=== PATIENT | female | born 1955 | race African-American/Black ===

== ENCOUNTER 2020-07-02 08:42 | Outpatient (CLI) | payer MEDICARE, SELFPAY ==
--- NOTE | ~2020-07-02 | MM_ITS ---
EXAMINATION: MM screening [facility] BI w pierre HISTORY: Screening mammogram TECHNIQUE: Craniocaudal and mediolateral oblique 3-D tomosynthesis images were obtained and synthetic 2-D images were generated. CAD analysis was submitted and interpreted. COMPARISON: 04/28/2018, 05/04/2012, 09/18/2009 BREAST PARENCHYMAL COMPOSITION: There are scattered areas of fibroglandular density. FINDINGS: There is no evidence of suspicious mass, calcification, or architectural distortion to sugg est malignancy in either breast. There has been no suspicious interval change. IMPRESSION: 1. No mammographic evidence of malignancy. 2. Recommend routine screening mammography in one year. BI-RADS Category 1: Negative Reviewed, dictated and finalized at location A.
== END 2020-07-02 08:43 | disposition home or self-care (01) ==
LOC: ANHIMG 08:44
PROVIDERS: PCP Physician Assistant; Visit Provider Obstetrics & Gynecology
DX: Z12.31 Encounter for screening mammogram for malignant neoplasm of breast (principal)
CPT/HCPCS: 77063; 77067

== ENCOUNTER 2020-09-13 08:26 | Outpatient (CLI) | payer MEDICARE, SELFPAY ==
--- NOTE | ~2020-09-13 | XR_ITS ---
EXAMINATION: XR UGIAC wo kub DATE: 09/13/2020 09:13 INDICATION: Epigastric pain. Prior laparoscopic banding procedure with subsequent removal 8 years crystal or. TECHNIQUE: The patient drank thick barium, gas-producing crystals, and thin barium. A total of 634 fl uoroscopic images of the esophagus, stomach, and proximal small bowel were obtained. Fluoroscopy expo sure time was 1.5 minutes. COMPARISON: None. FINDINGS: There is a small sliding-type hiatal hernia with a portion of the gastric fundus projecting posterior and cephalad to the gastroesophageal junction. This likely results in artifactual polypoid appearing filling defect along the left posterior margin of the esophagus on the solid column images in the pr one procedure. There is mild esophageal dysmotility in the distal esophagus characterized by weakness of the primary peristaltic wave with small amount of pooling of contrast the midesophagus. There is a small retropulsion diverticulum in the midesophagus. The esophagus is otherwise normal with no oth er evident masses or strictures. There was no gastroesophageal reflux with provocative maneuvers. The stomach and proximal small bowel are normal. IMPRESSION: 1. Small sliding-type hiatal hernia which extends posterior to the distal esophagus and likely accoun ts for the appearance of a smooth polypoid filling defect at the gastroesophageal junction. Would how ever recommend further evaluation with endoscopy for confirmation and to exclude malignancy. 2. Mild esophageal dysmotility in the distal esophagus with small avulsion diverticulum in the mideso phagus. Reviewed, dictated and finalized at location A. IMPRESSION: 1. Small sliding-type hiatal hernia which extends posterior to the distal esoph gosia and likely accounts for the appearance of a smooth polypoid filling defect at the gastroesophageal junction. Would however recommend further evaluation w ith endoscopy for confirmation and to exclude malignancy. 2. Mild esophageal dysmotility in the distal esophagus with small avulsion dive rticulum in the midesophagus.
== END 2020-09-13 08:27 | disposition home or self-care (01) ==
PROVIDERS: PCP Physician Assistant; Visit Provider Physician Assistant
DX: R10.13 Epigastric pain (principal); K44.9 Diaphragmatic hernia without obstruction or gangrene
CPT/HCPCS: 74246

== ENCOUNTER 2021-07-24 14:22 | Outpatient (CLI) | payer MEDICARE, SELFPAY ==
--- NOTE | ~2021-07-24 | MM_ITS ---
EXAMINATION: MM screening [facility] BI w pierre HISTORY: Screening mammogram TECHNIQUE: Craniocaudal and mediolateral oblique 3-D tomosynthesis images were obtained and synthetic 2-D images were generated. CAD analysis was submitted and interpreted. COMPARISON: 07/02/2020, 04/28/2018, 05/04/2012 bilateral screening mammogram examinations BREAST PARENCHYMAL COMPOSITION: The breasts are almost entirely fatty. FINDINGS: There is an approximately 3 x 7.3 mm irregular high density suspicious mass in the outer mi d right breast near junction of anterior and mid depth. Diagnostic right mammogram and right breast ultrasound are recommended. No other evidence of suspicious mass, calcification, or architectural distortion to suggest malignan cy in either breast. There has been no other suspicious interval change. IMPRESSION: 1. Suspicious irregular high density mass in outer mid right breast 2. Diagnostic right mammogram and right breast ultrasound are recommended. BI-RADS Category 0: Incomplete: Needs additional imaging evaluation. Reviewed, dictated and finalized at location A.
== END 2021-07-24 14:23 | disposition home or self-care (01) ==
PROVIDERS: PCP Physician Assistant; Visit Provider Obstetrics & Gynecology
DX: Z12.31 Encounter for screening mammogram for malignant neoplasm of breast (principal); R92.8 Other abnormal and inconclusive findings on diagnostic imaging of breast
CPT/HCPCS: 77063; 77067

== ENCOUNTER 2021-08-02 13:14 | Outpatient (CLI) | payer MEDICARE, SELFPAY ==
--- NOTE | ~2021-08-02 | MMUS_ITS ---
EXAMINATION: MM diagnostic [facility] RT w pierre, US breast RT limited HISTORY: Right breast mass on screening mammogram TECHNIQUE: Additional 3-D tomosynthesis images of the right breast were performed and synthetic 2-D i mages were generated. CAD analysis was submitted and interpreted. High resolution limited right breas t ultrasound was performed. COMPARISON: 07/24/2021, 07/02/2020, 04/28/2018, 05/04/2012 FINDINGS: MAMMOGRAPHIC FINDINGS: There is an 8 mm x 5 mm oval, circumscribed, the middle third of the outer breast at the 9:00 locatio n 6 cm from the nipple. No associated architectural distortion or suspicious calcification are identi fied. ULTRASOUND: There is a 7 mm x 3 mm oval, circumscribed, parallel, hypoechoic mass with no posterior features or i nternal vascularity at the 10:00 location 8 cm from the nipple. IMPRESSION: 1. Probably benign right breast mass. 2. Recommend 6 month follow-up right diagnostic mammogram and ultrasound. BI-RADS category 3, probably benign findings. Reviewed, dictated and finalized at location A. IMPRESSION: 1. Probably benign right breast mass. 2. Recommend 6 month follow-up right diagnostic mammogram and ultrasound. BI-RADS category 3, probably benign findings.
== END 2021-08-02 13:15 | disposition home or self-care (01) ==
LOC: ANHIMG 13:14
PROVIDERS: PCP Physician Assistant; Visit Provider Obstetrics & Gynecology
DX: R92.8 Other abnormal and inconclusive findings on diagnostic imaging of breast (principal)
CPT/HCPCS: 76642; 77061; 77065; G0279

== ENCOUNTER 2021-09-03 12:54 | Outpatient (CLI) | payer MEDICARE, SELFPAY ==
--- NOTE | ~2021-09-03 | US_ITS ---
EXAMINATION: US pelvic complete DATE: 09/03/2021 13:28 INDICATION: Postmenopausal bleeding Comparison:No prior studies for comparison. TECHNIQUE: Multiple transabdominal sonographic images of the pelvis performed. Patient refused transv aginal study. FINDINGS: The uterus measures 8.8 x 3 4.4 x 4.1 cm. The endometrial complex measures 4.3 mm. There is a uterine fibroid measuring 2.2 x 2 x 2 cm at the fundus. The ovaries are not visualized, likely atrophic. There is no free fluid in the pelvis. There are no abnormal masses seen on either side. IMPRESSION: 1. Thickened endomtrial complex. The differential diagnosis includes endometrial hyperplasia, polyp a nd carcinoma. Biopsy is recommended. 2: Uterine fibroid measuring 2.2 cm maximum dimension. Reviewed, dictated and finalized at location A. IMPRESSION: 1. Thickened endomtrial complex. The differential diagnosis includes endometria l hyperplasia, polyp and carcinoma. Biopsy is recommended. 2: Uterine fibroid measuring 2.2 cm maximum dimension.
== END 2021-09-03 12:55 | disposition home or self-care (01) ==
PROVIDERS: PCP Physician Assistant; Visit Provider Obstetrics & Gynecology
DX: N95.0 Postmenopausal bleeding (principal); R93.89 Abnormal findings on diagnostic imaging of other specified body structures
CPT/HCPCS: 76856

== ENCOUNTER 2022-02-04 13:53 | Outpatient (CLI) | payer MEDICARE, SELFPAY ==
--- NOTE | ~2022-02-04 | MMUS_ITS ---
EXAMINATION: MM diagnostic [facility] RT w pierre, US breast RT limited HISTORY: Follow-up right breast mass TECHNIQUE: Additional 3-D tomosynthesis images of the right breast were performed and synthetic 2-D i mages were generated. CAD analysis was submitted and interpreted. High resolution Limited right breas t ultrasound was performed. COMPARISON: Comparison to multiple prior studies sequentially, with oldest reviewed study dated 05/04. BREAST PARENCHYMAL COMPOSITION: Breast composed of scattered areas of fibroglandular density FINDINGS: MAMMOGRAPHIC FINDINGS: There is a stable small mass in the upper outer quadrant of the right breast, middle third without si gnificant change compared with 07/24/2021 and 07/02/2020. ULTRASOUND: Limited right breast ultrasound: The oval hypoechoic mass seen on prior examination at the 10:00 posi tion could not be duplicated on the current examination. IMPRESSION: 1. Stable small 6 mm right breast mass, upper outer quadrant. This mass could not be reproduced by ul trasound, although likely benign. 2. Recommend 6 month follow-up diagnostic right mammogram with possible additional ultrasound. BI-RADS category 3, probably benign findings. Reviewed, dictated and finalized at location B. OR CASE MANAGER IMPRESSION: 1. Stable small 6 mm right breast mass, upper outer quadrant. This mass could n ot be reproduced by ultrasound, although likely benign. 2. Recommend 6 month follow-up diagnostic right mammogram with possible additio nal ultrasound. BI-RADS category 3, probably benign findings.
== END 2022-02-04 13:54 | disposition home or self-care (01) ==
LOC: ANHIMG 13:58
PROVIDERS: PCP Physician Assistant; Visit Provider Obstetrics & Gynecology
DX: N63.11 Unspecified lump in the right breast, upper outer quadrant (principal)
CPT/HCPCS: 76642; 77061; 77065; G0279

== ENCOUNTER 2022-08-07 11:07 | Outpatient (CLI) | payer MEDICARE, SELFPAY ==
--- NOTE | ~2022-08-07 | MM_ITS ---
EXAMINATION: MM diagnostic [facility] BI w pierre HISTORY: Six-month follow-up of right breast 6 mm mass, upper outer quadrant TECHNIQUE: ML, MLO and CC 3-D tomosynthesis images of both breasts were performed and synthetic 2-D i mages were generated. Bilateral rotated lateral craniocaudal views. CAD analysis was submitted and in terpreted. COMPARISON: None FINDINGS: Stable circumscribed approximately 2.4 x 6 mm opacity in the mid to lower outer right breas t. No suspicious mass, architectural distortion, malignant calcifications, skin thickening or retract ion of either breast or significant new or developing density of either breast is detected. IMPRESSION: 1. Benign finding 2. Routine annual mammographic screening is recommended BI-RADS Category 2: Benign finding(s). Reviewed, dictated and finalized at location A.
== END 2022-08-07 11:08 | disposition home or self-care (01) ==
LOC: ANHIMG 11:08
PROVIDERS: PCP Physician Assistant; Visit Provider Obstetrics & Gynecology
DX: N63.11 Unspecified lump in the right breast, upper outer quadrant (principal)
CPT/HCPCS: 77062; 77066; G0279

== ENCOUNTER 2022-12-10 13:47 | Outpatient (CLI) | payer MEDICARE, SELFPAY ==
[2022-12-10 14:59] LABS: Appearance Urine Clear (Clear); Bilirubin Urine Negative (Negative); Blood Urine Negative (Negative); Color Urine Yellow (Yellow); Glucose Urine UA Negative (Negative); Ketones Urine Negative (Negative); Leukocyte Esterase Ur Negative LEU/UL (NEGATIVE); Nitrate Urine Negative (Negative); Protein Urine Negative (Negative); Specific Grav Ur 1.009 (1.001-1.035); Urobilinogen Urine 0.2 mg/dL (<2.0); pH Urine 5.5 (5.0-9.0)
[2022-12-10 15:13] LABS: Albumin Level 4.5 g/dL (3.5-5.1); Anion Gap 8 mmol/L (8-16); Blood Urea Nitrogen 35 mg/dL (7-17); Calcium 9.8 mg/dL (8.4-10.2); Carbon Dioxide 27 mmol/L (22-30); Chloride 101 mmol/L (98-107); Creatine Kinase 143 U/L (30-135); Estimated Glomerular Filt Rate 39; Glucose 88 mg/dL (65-110); Phosphorus 3.1 mg/dL (2.5-4.5); Potassium 4.2 mmol/L (3.4-5.0); Sodium 136 mmol/L (137-145); Uric Acid 6.3 mg/dL (2.5-7.5)
[2022-12-10 15:21] LABS: Complement C3 137 mg/dL (88-165)
[2022-12-10 15:22] LABS: Add Urine Microscopic? NO
[2022-12-10 15:34] LABS: Creatinine Urine 75.4 mg/dL; Total Protein Urine Random 15 mg/dL
[2022-12-11 08:35] LABS: Hematocrit 37.4 % (37.0-47.0); Hemoglobin 11.9 g/dL (12.0-15.0); Mean Corpuscular HGB Conc 31.8 g/dl (32-36); Mean Corpuscular Hemoglobin 29.2 pg (26-34); Mean Corpuscular Volume 91.7 fl (80-100); Mean Platelet Volume 12.6 fl (7.4-10.4); Platelet Count Result 285 k/mm3 (150-375); Red Blood Count 4.08 M/mm3 (4.2-5.4); Red Cell Distribution Width 16.2 % (11.5-14.5); White Blood Count 8.6 K/mm3 (4.5-10.0)
[2022-12-11 09:10] LABS: Erythrocyte Sedimentation Rate 64 mm/hr (0-20)
[2022-12-12 18:17] LABS: Complement Total CH50 >60 U/mL (31-60)
[2022-12-14 16:08] LABS: Kappa\\Lambda Light Chains 1.77 (0.26-1.65); Lambda Light Chain 27.9 mg/L (5.7-26.3)
== END 2022-12-10 13:48 | disposition home or self-care (01) ==
LOC: ANHLAB 13:52
PROVIDERS: PCP Physician Assistant; Visit Provider Internal Medicine Nephrology
DX: N18.32 Chronic kidney disease, stage 3b (principal); I12.9 Hypertensive chronic kidney disease with stage 1 through stage 4 chronic kidney disease, or unspecified chronic kidney disease
CPT/HCPCS: 36415; 80069; 81003; 82550; 82570; 83883; 83970; 84156; 84550; 85027; 85652; 86038; 86160; 86162; 86334

== ENCOUNTER 2022-12-15 13:53 | Outpatient (CLI) | payer MEDICARE, SELFPAY ==
[2022-12-15 15:08] LABS: Total Volume 24 Hour Urine 2600 ml
[2022-12-15 15:20] LABS: Urea Nitrogen 24 Hour Urine 9.3 G/DAY (12-20)
[2022-12-22 07:30] LABS: Creat 24 Hr 1.16; Pro/Creat Ratio 121; Protein,total, 24 Hr Ur 140 mg/24h
== END 2022-12-15 13:54 | disposition home or self-care (01) ==
PROVIDERS: PCP Physician Assistant; Visit Provider Internal Medicine Nephrology
DX: I12.9 Hypertensive chronic kidney disease with stage 1 through stage 4 chronic kidney disease, or unspecified chronic kidney disease (principal); N18.32 Chronic kidney disease, stage 3b
CPT/HCPCS: 81050; 84540; 86335

== ENCOUNTER 2022-12-16 14:15 | Outpatient (CLI) | payer MEDICARE, SELFPAY ==
--- NOTE | ~2022-12-16 | US_ITS ---
US renal BI 12/16/2022 15:11 Procedure: Realtime transabdominal ultrasound of the kidneys and bladder. Indication: Hypertension Comparison: No prior studies for comparison. Findings: Renal echotexture is normal bilaterally without hydronephrosis, contour deforming mass or r enal calculus. The right kidney measures 10.1 cm and left kidney measures 8.5 cm. There are bilateral renal cysts. Bladder within normal limits. Impression: 1: Bilateral renal cysts. Reviewed, dictated and finalized at location L. Impression: 1: Bilateral renal cysts.
[2022-12-27 12:28] LABS: Renin 4.65 ng/mL/h (0.25-5.82)
== END 2022-12-16 14:16 | disposition home or self-care (01) ==
PROVIDERS: PCP Physician Assistant; Visit Provider Internal Medicine Nephrology
DX: I12.9 Hypertensive chronic kidney disease with stage 1 through stage 4 chronic kidney disease, or unspecified chronic kidney disease (principal); N18.32 Chronic kidney disease, stage 3b
CPT/HCPCS: 36415; 76775; 82088; 84244

== ENCOUNTER 2022-12-19 08:13 | Outpatient (CLI) | payer MEDICARE, SELFPAY ==
[2023-01-02 08:14] LABS: Creat 24 Hr 1.41; Pro/Creat Ratio 78; Protein,total, 24 Hr Ur 110 mg/24h
== END 2022-12-19 08:14 | disposition home or self-care (01) ==
PROVIDERS: PCP Physician Assistant; Visit Provider Internal Medicine Nephrology
DX: I10 Essential (primary) hypertension (principal); N18.32 Chronic kidney disease, stage 3b
CPT/HCPCS: 86335

== ENCOUNTER 2023-01-30 14:43 | Outpatient (CLI) | payer MEDICARE, SELFPAY ==
--- NOTE | ~2023-01-30 | DEXA_ITS ---
Bone Density Report Name: KEMAL MITTAL Age: 67 Sex: Female Ethnicity: White Date of : 1955 Indication: hyperparathyroidism; asthma or emphysema; end stage renal disease; postmenopausal Referring Provider: NURIS MEIER Study: Bone densitometry was performed. Exam Date: January 30, 2023 Accession number: [id number] Bone Density: Region BMD T-score Z-score Classification Femoral Neck (Left) 1.086 2.1 3.8 Normal Total Hip (Left) 1.201 2.1 3.5 Normal Femoral Neck (Right) 1.148 2.7 4.4 Normal Total Hip (Right) 1.223 2.3 3.7 Normal Total Hip Mean 1.212 2.2 3.6 Normal World Health Organization criteria for BMD impression classify patients as: Normal (T-score at or above -1.0), Osteopenia (T-score between -1.0 and -2.5), or Osteoporosis (T-score at or below -2.5). 10-year Fracture Risk: FRAX not reported because: All T-scores for Spine Total, Hip Total, Femoral Neck at or above -1.0 Clinical Information Provided by Patient: Has used the following medications: Vitamin D, Calcium Has the following medical conditions: Asthma or Emphysema, End stage renal disease, Hyperparathyroidism Patient maximum height was 63.5 Menopause Age: 54 No regular weight bearing exercise Drinks caffeinated beverages Onset of menses at age 14 Number of children 2 Impression: The patient has normal bone mass. Discussion: LOW RISK OF FRACTURE; BONE DENSITY IS WELL ABOVE THE MINIMUM DESIRABLE LEVEL AND ABOVE AVERAGE FOR AGE AND SEX AT ALL SKELETAL SITES TESTED. This person's bone density is above expected limits for age and sex. This is rarely clinically significant, but should be pursued if there are significant musculoskeletal complaints. The patient should follow a healthful lifestyle (good nutrition with adequate calcium and vitamin D, and appropriate weight-bearing exercise). Follow-Up: Consider repeating this study in 5 years or sooner if there is some new clinical indication. Reported by: [facility] on 01/30/2023 3:00:00 PM. Reviewed, dictated and finalized at location ADanny JOSEPH
== END 2023-01-30 14:44 | disposition home or self-care (01) ==
LOC: ANHIMG 14:45
PROVIDERS: PCP Physician Assistant; Visit Provider Obstetrics & Gynecology
DX: Z78.0 Asymptomatic menopausal state (principal)
CPT/HCPCS: 77080

== ENCOUNTER 2023-03-02 09:23 | Emergency (ER) | payer MEDICARE, SELFPAY ==
--- NOTE | ~2023-03-02 | CT_ITS ---
EXAMINATION: CT brain wo con DATE: 03/02/2023 11:01 INDICATION: Dizziness. TECHNIQUE: Computed tomography (CT) of the head was performed without intravenous contrast. The mA wa s adjusted according to patient size. Iterative reconstruction technique was employed. The dose-lengt h product was 681.00 mGy-cm. COMPARISON: None FINDINGS: There is no intracranial hemorrhage, acute infarction, or abnormal intracranial mass lesion . There are scattered areas of low attenuation in the cerebral white matter, which is within normal l imits for the patient's age. The ventricles are normal in size. There are likely changes of ocular le ns replacement surgeries. There is a mucous retention cyst in left maxillary sinus. The mastoid air c ells are normal. IMPRESSION: 1. Normal aging brain. Reviewed, dictated and finalized at location A. OPHANE PRESS OPERATOR IMPRESSION: 1. Normal aging brain.
[2023-03-02 10:00] VITALS: BP 173/95; PULSE 110; RESP 20; TEMP 36.1; O2SAT 96
--- NOTE | 2023-03-02 10:34 | ED.GENADULT ---
HPI - General Adult General Chief complaint: Dizziness <Savannah Schmidt June, - Last Filed: 03/02/23 10:39> Stated complaint: dizziness <Savannah Schmidt June, - Last Filed: 03/02/23 10:39> Time Seen by Provider: 03/02/23 15:53 <Savannah Schmidt June, - Last Filed: 03/02/23 10:39> History of Present Illness HPI narrative: Jolie Montelongo is a 67 y/o female with PMHx of HTN/ Stage III Kidney Disease / hx of back surgeries/ Hypothyroidism- who presents today with reports of waking up yesterday at around [id number] with dizziness like the room was spinning and some nausea- She states that she tried to rest to improve her symptoms and when she got up today she states she still feels dizzy and feels some heart palpitations. Denies chest pain/ shortness of breath/ no fever/chills / sore throat Patient is alert and oriented X4 no vision changes/ no blurry vision/ no numbness/tingling/ no weakness/ <Savannah Schmidt June, - Last Filed: 03/02/23 10:39> Related Data Home medications: Home Medications Medication Instructions Recorded Confirmed allopurinol 100 mg tablet 100 mg PO DAILY 04/26/19 11/27/22 amlodipine 10 mg-olmesartan 40 mg 1 tablet PO DAILY 04/26/19 11/27/22 tablet levothyroxine 50 mcg tablet 50 mcg PO DAILY 04/26/19 11/27/22 cholecalciferol (vitamin D3) 25 25 mcg PO DAILY 08/27/21 11/27/22 mcg (1,000 unit) capsule famotidine 40 mg tablet 40 mg PO DAILY 08/27/21 11/27/22 hydrochlorothiazide 25 mg tablet 25 mg PO DAILY 09/16/22 11/27/22 <Savannah Schmidt June, - Last Filed: 03/02/23 10:39> Allergies/adverse reactions: Allergies Allergy/AdvReac Type Severity Reaction Status Date / Time EDMUNDO Inhibitors Allergy Mild facial Verified 11/27/22 15:02 swelling amoxicillin Allergy Unknown Unknown Verified 11/27/22 15:02 ampicillin Allergy Unknown Unknown Verified 11/27/22 15:02 dicloxacillin Allergy Unknown Unknown Verified 11/27/22 15:02 Penicillins Allergy Unknown Unknown Verified 11/27/22 15:02 <Savannah Moreland CASE SEALER - Last Filed: 03/02/23 10:39> Review of Systems Review of Systems: All systems reviewed & are unremarkable except as noted in HPI and below <Master Boone MD - Last Filed: 03/02/23 16:16> Constitutional: Constitutional: Reports no additional constitutional complaints <Master Boone MD - Last Filed: 03/02/23 16:16> ENT: Reports vertigo, Reports dizziness, Reports nasal congestion and Reports sore throat <Master Boone MD - Last Filed: 03/02/23 16:16> Cardiovascular: Cardiovascular: Denies chest pain, Reports rapid heart rate and Denies radiating jaw, neck or arm pain <Master Boone MD - Last Filed: 03/02/23 16:16> Respiratory: Respiratory: Reports no additional respiratory complaints <Master Boone MD - Last Filed: 03/02/23 16:16> Gastrointestinal: Gastrointestinal: Denies abdominal pain, Denies diarrhea, Reports nausea and Reports vomiting <Master Boone MD - Last Filed: 03/02/23 16:16> Musculoskeletal: Musculoskeletal: Reports no additional musculoskeletal complaints <Master Boone MD - Last Filed: 03/02/23 16:16> Neurologic: Denies syncope, Denies headache(s), Denies focal weakness and Denies numbness <Master Boone MD - Last Filed: 03/02/23 16:16> [facility] Past Medical History Medical History: Medical History Anemia Asthma Depression History of vaginal delivery x 2 Hypertension Hypothyroid Prediabetes <Savannah Moreladn CASE SEALER - Last Filed: 03/02/23 10:39> Surgical History Surgical History: Surgical History History of back surgery History of cardiac cath History of cataract surgery History of gastric surgery lapband History of tubal ligation S/P wrist surgery <Savannah Moreland CASE SEALER - Last Filed: 03/02/23 10:39> Family History Family History: Family History (Reviewed 11/27/22 @ 15:19 by Lencho Martin
--- NOTE | 2023-03-02 10:39 | ECG_ITS ---
Measurements Intervals [place] Rate: 99 P: -81 CA: 175 QRS: -14 QRSD: 89 T: 97 QT: 333 QTc: 429 Interpretive Statements ECTOPIC ATRIAL RHYTHM LEFT VENTRICULAR HYPERTROPHY AND ST-T CHANGE INFERIOR INFARCT, AGE INDETERMINATE BASELINE ARTIFACT- I, II, III, AVR, AVF ABNORMAL ECG NO PREVIOUS ECG AVAILABLE FOR COMPARISON Electronically Signed On 03-02-2023 11:52:25 COPYWRITER by Willis Elliott D.O.
[2023-03-02] MEDS: MECLIZINE HCL 25 MG TABLET PO (11:52)
[2023-03-02 12:11] LABS: Basophils Percent Auto 0.3 % (0.2-1.2); Eosinophils Absolute Auto 0.1 K/mm3 (0-0.3); Hematocrit 39.9 % (37.0-47.0); Hemoglobin 12.3 g/dL (12.0-15.0); Immature Granulocyte Absolute 0.03 K/mm3 (0.00-0.031); Immature Granulocyte Percent A 0.3 % (0-0.5); Immature Platelet Fraction Pct 3.6 % (0.9-11.2); Lymphocytes Absolute Auto 1.92 K/mm3 (0.9-3.2); Lymphocytes Percent Auto 21.6 % (18.3-44.2); Mean Corpuscular HGB Conc 30.8 g/dl (32-36); Mean Corpuscular Hemoglobin 27.8 pg (26-34); Mean Corpuscular Volume 90.1 fl (80-100); Mean Platelet Volume 11.7 fl (7.4-10.4); Monocytes Absolute Auto 0.5 K/mm3 (0.1-0.6); Monocytes Percent Auto 5.8 % (2.6-8.5); Neutrophils Absolute Auto 6.3 K/mm3 (1.3-6.7); Platelet Count Result 263 k/mm3 (150-375); Red Blood Count 4.43 M/mm3 (4.2-5.4); Red Cell Distribution Width 15.3 % (11.5-14.5); White Blood Count 8.9 K/mm3 (4.5-10.0)
[2023-03-02 12:28] LABS: Alanine Aminotransferase 17 U/L (6-35); Albumin Level 4.5 g/dL (3.5-5.1); Alkaline Phosphatase 123 U/L (38-126); Anion Gap 8 mmol/L (8-16); Aspartate Amino Transferase 31 U/L (14-36); Bilirubin,Total 0.8 mg/dL (0.2-1.3); Blood Urea Nitrogen 25 mg/dL (7-17); Calcium 10.5 mg/dL (8.4-10.2); Carbon Dioxide 31 mmol/L (22-30); Chloride 99 mmol/L (98-107); Estimated CRCL calculation 43 ml/min; Estimated Glomerular Filt Rate 49; Glucose 102 mg/dL (65-110); Potassium 4.8 mmol/L (3.4-5.0); Sodium 138 mmol/L (137-145)
[2023-03-02 12:33] LABS: Add Urine Microscopic? YES; Appearance Urine Clear (Clear); Bacteria Urine None Seen /hpf; Bilirubin Urine Negative (Negative); Blood Urine Negative (Negative); Color Urine Yellow (Yellow); Glucose Urine UA Negative (Negative); Ketones Urine Negative (Negative); Leukocyte Esterase Ur Negative LEU/UL (Negative); Need Manual Microscopic Reviewed; Nitrate Urine Negative (Negative); Non Pathogenic Casts 0-2; Protein Urine Trace mg/dL (Negative); Specific Grav Ur 1.004 (1.001-1.035); Squamous Epithelial Cell Urine None seen /hpf (Few); Urobilinogen Urine 0.2 mg/dL (<2.0); WBC Urine 0-5 /hpf
[2023-03-02 12:39] LABS: Troponin I < 0.012 ng/mL (0.000-0.034)
[2023-03-02 15:59] VITALS: BP 163/90; PULSE 105; PULSE 109; RESP 18; O2SAT 100
[2023-03-02 16:23] VITALS: BP 157/98; PULSE 101; O2SAT 98
== END 2023-03-02 16:26 | disposition home or self-care (01) ==
PROVIDERS: Nurse Practitioner Family; Emergency Provider Emergency Medicine; PCP Physician Assistant
DX: I12.9 Hypertensive chronic kidney disease with stage 1 through stage 4 chronic kidney disease, or unspecified chronic kidney disease (principal); N18.30 Chronic kidney disease, stage 3 unspecified; J45.909 Unspecified asthma, uncomplicated; E03.9 Hypothyroidism, unspecified; R73.03 Prediabetes; Z86.2 Personal history of diseases of the blood and blood-forming organs and certain disorders involving the immune mechanism; I51.7 Cardiomegaly; R94.31 Abnormal electrocardiogram [ECG] [EKG]
CPT/HCPCS: 36415; 70450; 80053; 81001; 84484; 85025; 85055; 93005; 99284; A9270

== ENCOUNTER 2023-03-27 15:21 | Outpatient (CLI) | payer MEDICARE, SELFPAY ==
[2023-03-27 16:31] LABS: Hematocrit 37.6 % (37.0-47.0); Hemoglobin 11.4 g/dL (12.0-15.0); Mean Corpuscular HGB Conc 30.3 g/dl (32-36); Mean Corpuscular Hemoglobin 27.6 pg (26-34); Mean Platelet Volume 11.9 fl (7.4-10.4); Platelet Count Result 265 k/mm3 (150-375); Red Blood Count 4.13 M/mm3 (4.2-5.4); Red Cell Distribution Width 15.3 % (11.5-14.5); White Blood Count 9.4 K/mm3 (4.5-10.0)
[2023-03-27 16:42] LABS: Albumin Level 4.1 g/dL (3.5-5.1); Anion Gap 6 mmol/L (8-16); Blood Urea Nitrogen 45 mg/dL (7-17); Calcium 9.5 mg/dL (8.4-10.2); Carbon Dioxide 29 mmol/L (22-30); Chloride 104 mmol/L (98-107); Estimated Glomerular Filt Rate 42; Glucose 87 mg/dL (65-110); Phosphorus 3.3 mg/dL (2.5-4.5); Potassium 4.5 mmol/L (3.4-5.0); Sodium 139 mmol/L (137-145)
[2023-03-27 16:43] LABS: Creatinine Urine 162.2 mg/dL; Total Protein Urine Random 27 mg/dL; Ur Ttl Prot Creatinine Ratio 0.17 mg/mg (0-0.20)
[2023-03-27 16:54] LABS: Parathyroid Intact 134.8 pg/mL (7.5-53.5)
== END 2023-03-27 15:22 | disposition home or self-care (01) ==
LOC: ANHLAB 15:25
PROVIDERS: PCP Physician Assistant; Visit Provider Internal Medicine Nephrology
DX: N18.32 Chronic kidney disease, stage 3b (principal)
CPT/HCPCS: 36415; 80069; 82570; 83970; 84156; 85027

== ENCOUNTER 2023-05-06 13:38 | Outpatient (CLI) | payer MEDICARE, SELFPAY ==
[2023-05-06 14:11] LABS: Basophils Percent Auto 0.5 % (0.2-1.2); Eosinophils Absolute Auto 0.1 K/mm3 (0-0.3); Eosinophils Percent Auto 1.6 % (0-4.4); Hematocrit 35.3 % (37.0-47.0); Hemoglobin 10.9 g/dL (12.0-15.0); Immature Granulocyte Absolute 0.03 K/mm3 (0.00-0.031); Immature Granulocyte Percent A 0.4 % (0-0.5); Lymphocytes Absolute Auto 2.19 K/mm3 (0.9-3.2); Lymphocytes Percent Auto 25.8 % (18.3-44.2); Mean Corpuscular HGB Conc 30.9 g/dl (32-36); Mean Corpuscular Hemoglobin 27.7 pg (26-34); Mean Corpuscular Volume 89.8 fl (80-100); Monocytes Absolute Auto 0.5 K/mm3 (0.1-0.6); Neutrophils Absolute Auto 5.6 K/mm3 (1.3-6.7); Neutrophils Percent Auto 65.7 % (45.5-73.1); Platelet Count Result 257 k/mm3 (150-375); Red Blood Count 3.93 M/mm3 (4.2-5.4); Red Cell Distribution Width 15.3 % (11.5-14.5); White Blood Count 8.5 K/mm3 (4.5-10.0)
[2023-05-06 14:13] LABS: Alanine Aminotransferase 14 U/L (6-35); Albumin Level 4.2 g/dL (3.5-5.1); Alkaline Phosphatase 110 U/L (38-126); Anion Gap 4 mmol/L (8-16); Aspartate Amino Transferase 24 U/L (14-36); Bilirubin,Total 0.4 mg/dL (0.2-1.3); Blood Urea Nitrogen 41 mg/dL (7-17); Calcium 9.7 mg/dL (8.4-10.2); Carbon Dioxide 29 mmol/L (22-30); Chloride 105 mmol/L (98-107); Cholesterol 167 mg/dL (0-200); Estimated Glomerular Filt Rate 32; Glucose 93 mg/dL (65-110); HDL Direct 63 mg/dL; Potassium 4.5 mmol/L (3.4-5.0); Sodium 138 mmol/L (137-145); Triglycerides 69 mg/dL (<150); Uric Acid 4.1 mg/dL (2.5-7.5)
[2023-05-06 14:24] LABS: LDL Cholesterol Direct 73 mg/dL
[2023-05-06 14:48] LABS: Free T4 Free Thyroxine 1.12 ng/mL (0.78-2.19)
[2023-05-06 15:18] LABS: Hemoglobin A1C 5.8 % (<5.7)
== END 2023-05-06 13:39 | disposition home or self-care (01) ==
LOC: ANHLAB 13:40
PROVIDERS: PCP Physician Assistant; Visit Provider Physician Assistant
DX: E03.9 Hypothyroidism, unspecified (principal); M10.9 Gout, unspecified; R73.03 Prediabetes; Z79.899 Other long term (current) drug therapy; Z13.220 Encounter for screening for lipoid disorders
CPT/HCPCS: 36415; 80048; 80061; 80076; 83036; 84439; 84443; 84550; 85025

== ENCOUNTER 2023-05-20 15:03 | Outpatient (CLI) | payer MEDICARE, SELFPAY ==
[2023-05-20 15:59] LABS: Albumin Level 4.3 g/dL (3.5-5.1); Anion Gap 6 mmol/L (4-12); Blood Urea Nitrogen 34 mg/dL (7-17); Calcium 10.2 mg/dL (8.4-10.2); Carbon Dioxide 28 mmol/L (22-30); Chloride 102 mmol/L (98-107); Estimated Glomerular Filt Rate 39; Glucose 104 mg/dL (65-110); Phosphorus 3.2 mg/dL (2.5-4.5); Potassium 4.1 mmol/L (3.4-5.0); Sodium 136 mmol/L (137-145)
[2023-05-20 17:06] LABS: Creatinine Urine 29.1 mg/dL; Total Protein Urine Random 16 mg/dL; Ur Ttl Prot Creatinine Ratio 0.55 mg/mg (0-0.20)
== END 2023-05-20 15:04 | disposition home or self-care (01) ==
LOC: ANHLAB 15:06
PROVIDERS: PCP Physician Assistant; Visit Provider Internal Medicine Nephrology
DX: N18.32 Chronic kidney disease, stage 3b (principal)
CPT/HCPCS: 36415; 80069; 82570; 84156

== ENCOUNTER 2023-06-19 14:47 | Outpatient (CLI) | payer MEDICARE, SELFPAY ==
--- NOTE | ~2023-06-19 | MM_ITS ---
EXAMINATION: MM screening [facility] BI w pierre HISTORY: Screening mammogram TECHNIQUE: Craniocaudal and mediolateral oblique 3-D tomosynthesis images were obtained and synthetic 2-D images were generated. CAD analysis was submitted and interpreted. COMPARISON: 08/07/2022 bilateral screening mammogram 02/04/2022 diagnostic right mammogram and Limited right breast ultrasound 08/02/2021 diagnostic right mammogram and Limited right breast ultrasound 07/24/2021, 08/02/2020 bilateral screening mammogram examinations BREAST PARENCHYMAL COMPOSITION: There are scattered areas of fibroglandular density. FINDINGS: Stable approximately 2.5 by 6 mm circumscribed opacity in the outer right breast. There is no evidence of suspicious mass, calcification, or architectural distortion to suggest malignancy in e ither breast. There has been no suspicious interval change. IMPRESSION: 1. No mammographic evidence of malignancy. 2. Recommend routine screening mammography in one year. BI-RADS Category 2: Benign finding(s). Reviewed, dictated and finalized at location A.
== END 2023-06-19 14:48 | disposition home or self-care (01) ==
LOC: ANHIMG 14:49
PROVIDERS: PCP Physician Assistant; Visit Provider Obstetrics & Gynecology
DX: Z12.31 Encounter for screening mammogram for malignant neoplasm of breast (principal)
CPT/HCPCS: 77063; 77067

== ENCOUNTER 2023-07-24 13:37 | Outpatient (CLI) | payer MEDICARE, SELFPAY ==
[2023-07-24 15:02] LABS: Hematocrit 36.3 % (37.0-47.0); Hemoglobin 11.4 g/dL (12.0-15.0); Mean Corpuscular HGB Conc 31.4 g/dl (32-36); Mean Corpuscular Hemoglobin 28.2 pg (26-34); Mean Corpuscular Volume 89.9 fl (80-100); Mean Platelet Volume 11.5 fl (7.4-10.4); Platelet Count Result 279 k/mm3 (150-375); Red Blood Count 4.04 M/mm3 (4.2-5.4); Red Cell Distribution Width 15.9 % (11.5-14.5); White Blood Count 9.2 K/mm3 (4.5-10.0)
[2023-07-24 15:21] LABS: Appearance Urine Clear (Clear); Bilirubin Urine Negative (Negative); Blood Urine Negative (Negative); Color Urine Yellow (Yellow); Glucose Urine UA Negative (Negative); Ketones Urine Negative (Negative); Leukocyte Esterase Ur Negative LEU/UL (Negative); Nitrate Urine Negative (Negative); Protein Urine Negative (Negative); Specific Grav Ur 1.012 (1.001-1.035); Urobilinogen Urine 0.2 mg/dL (<2.0); pH Urine 5.5 (5.0-9.0)
[2023-07-24 15:22] LABS: Add Urine Microscopic? NO
[2023-07-24 15:25] LABS: Creatinine Urine 113.3 mg/dL; Total Protein Urine Random 13 mg/dL; Ur Ttl Prot Creatinine Ratio 0.11 mg/mg (0-0.20)
[2023-07-24 15:43] LABS: Albumin Level 4.4 g/dL (3.5-5.1); Anion Gap 7 mmol/L (4-12); Blood Urea Nitrogen 32 mg/dL (7-17); Calcium 9.3 mg/dL (8.4-10.2); Carbon Dioxide 26 mmol/L (22-30); Chloride 104 mmol/L (98-107); Estimated Glomerular Filt Rate 36; Glucose 93 mg/dL (65-110); Phosphorus 3.1 mg/dL (2.5-4.5); Potassium 4.4 mmol/L (3.4-5.0); Sodium 137 mmol/L (137-145); Uric Acid 4.9 mg/dL (2.5-7.5)
[2023-07-24 15:46] LABS: Parathyroid Intact 140.9 pg/mL (7.5-53.5)
== END 2023-07-24 13:38 | disposition home or self-care (01) ==
LOC: ANHLAB 13:43
PROVIDERS: PCP Physician Assistant; Visit Provider Internal Medicine Nephrology
DX: I12.9 Hypertensive chronic kidney disease with stage 1 through stage 4 chronic kidney disease, or unspecified chronic kidney disease (principal); N18.32 Chronic kidney disease, stage 3b; E66.9 Obesity, unspecified; M10.9 Gout, unspecified
CPT/HCPCS: 36415; 80069; 81003; 82570; 83970; 84156; 84550; 85027

== ENCOUNTER 2023-12-23 09:39 | Outpatient (CLI) | payer MEDICARE, SELFPAY ==
[2023-12-23 10:22] LABS: Basophils Percent Auto 0.4 % (0.2-1.2); Eosinophils Absolute Auto 0.3 K/mm3 (0-0.3); Hematocrit 37.1 % (37.0-47.0); Hemoglobin 11.7 g/dL (12.0-15.0); Immature Granulocyte Absolute 0.03 K/mm3 (0.00-0.031); Immature Granulocyte Percent A 0.3 % (0-0.5); Lymphocytes Absolute Auto 2.16 K/mm3 (0.9-3.2); Lymphocytes Percent Auto 23.7 % (18.3-44.2); Mean Corpuscular HGB Conc 31.5 g/dl (32-36); Mean Corpuscular Hemoglobin 29.1 pg (26-34); Mean Corpuscular Volume 92.3 fl (80-100); Mean Platelet Volume 11.1 fl (7.4-10.4); Monocytes Absolute Auto 0.6 K/mm3 (0.1-0.6); Monocytes Percent Auto 6.2 % (2.6-8.5); Neutrophils Percent Auto 66.4 % (45.5-73.1); Platelet Count Result 288 k/mm3 (150-375); Red Blood Count 4.02 M/mm3 (4.2-5.4); Red Cell Distribution Width 15.2 % (11.5-14.5); White Blood Count 9.1 K/mm3 (4.5-10.0)
[2023-12-23 10:34] LABS: Albumin Level 4.6 g/dL (3.5-5.1); Anion Gap 10 mmol/L (4-12); Blood Urea Nitrogen 50 mg/dL (7-17); Calcium 9.9 mg/dL (8.4-10.2); Carbon Dioxide 27 mmol/L (22-30); Chloride 103 mmol/L (98-107); Estimated Glomerular Filt Rate 27; Glucose 94 mg/dL (65-110); Phosphorus 3.8 mg/dL (2.5-4.5); Potassium 4.3 mmol/L (3.4-5.0); Sodium 140 mmol/L (137-145)
[2023-12-23 10:35] LABS: Alanine Aminotransferase 13 U/L (6-35); Albumin Level 4.6 g/dL (3.5-5.1); Alkaline Phosphatase 141 U/L (38-126); Aspartate Amino Transferase 22 U/L (14-36); Bilirubin,Total 0.5 mg/dL (0.2-1.3); Uric Acid 3.9 mg/dL (2.5-7.5)
[2023-12-23 10:37] LABS: Hemoglobin A1C 5.6 % (<5.7)
[2023-12-23 10:46] LABS: Parathyroid Intact 114.9 pg/mL (14.5-75.2)
[2023-12-23 10:51] LABS: Creatinine Urine 81.5 mg/dL; Total Protein Urine Random 9 mg/dL; Ur Ttl Prot Creatinine Ratio 0.11 mg/mg (0-0.20)
[2023-12-23 11:17] LABS: Vitamin D 25 Hydroxy 66.6 ng/mL
== END 2023-12-23 09:40 | disposition home or self-care (01) ==
PROVIDERS: Internal Medicine; PCP Physician Assistant; Referring Provider Physician Assistant; Visit Provider Internal Medicine Nephrology
DX: N18.32 Chronic kidney disease, stage 3b (principal); R31.9 Hematuria, unspecified; R73.03 Prediabetes; E03.9 Hypothyroidism, unspecified; Z79.899 Other long term (current) drug therapy
CPT/HCPCS: 36415; 80069; 80076; 82306; 82570; 83036; 83970; 84156; 84439; 84443; 84550; 85025

== ENCOUNTER 2024-01-27 15:21 | Outpatient (CLI) | payer MEDICARE, SELFPAY ==
[2024-01-27 16:43] LABS: Albumin Level 4.2 g/dL (3.5-5.1); Anion Gap 5 mmol/L (4-12); Blood Urea Nitrogen 50 mg/dL (7-17); Calcium 9.2 mg/dL (8.4-10.2); Carbon Dioxide 29 mmol/L (22-30); Chloride 103 mmol/L (98-107); Estimated Glomerular Filt Rate 32; Glucose 95 mg/dL (65-110); Potassium 4.4 mmol/L (3.4-5.0); Sodium 137 mmol/L (137-145)
[2024-01-27 16:51] LABS: Anion Gap 4 mmol/L (4-12); Blood Urea Nitrogen 50 mg/dL (7-17); Calcium 9.1 mg/dL (8.4-10.2); Carbon Dioxide 29 mmol/L (22-30); Chloride 104 mmol/L (98-107); Estimated Glomerular Filt Rate 30; Glucose 95 mg/dL (65-110); Potassium 4.3 mmol/L (3.4-5.0); Sodium 137 mmol/L (137-145); Uric Acid 4.3 mg/dL (2.5-7.5)
== END 2024-01-27 15:22 | disposition home or self-care (01) ==
PROVIDERS: PCP Physician Assistant; Visit Provider Internal Medicine Nephrology
DX: N18.32 Chronic kidney disease, stage 3b (principal)
CPT/HCPCS: 36415; 80048; 80069; 84550

== ENCOUNTER 2024-03-11 10:24 | Outpatient (CLI) | payer MEDICARE, SELFPAY ==
[2024-03-11 11:38] LABS: Basophils Percent Auto 0.2 % (0.2-1.2); Hematocrit 35.7 % (37.0-47.0); Hemoglobin 11.4 g/dL (12.0-15.0); Immature Granulocyte Absolute 0.06 K/mm3 (0.00-0.031); Immature Granulocyte Percent A 0.5 % (0-0.5); Lymphocytes Absolute Auto 0.99 K/mm3 (0.9-3.2); Lymphocytes Percent Auto 8.8 % (18.3-44.2); Mean Corpuscular HGB Conc 31.9 g/dl (32-36); Mean Corpuscular Hemoglobin 29.2 pg (26-34); Mean Corpuscular Volume 91.5 fl (80-100); Mean Platelet Volume 11.5 fl (7.4-10.4); Monocytes Absolute Auto 0.5 K/mm3 (0.1-0.6); Monocytes Percent Auto 4.3 % (2.6-8.5); Neutrophils Absolute Auto 9.7 K/mm3 (1.3-6.7); Neutrophils Percent Auto 86.2 % (45.5-73.1); Platelet Count Result 280 k/mm3 (150-375); Red Cell Distribution Width 15.2 % (11.5-14.5); White Blood Count 11.2 K/mm3 (4.5-10.0)
[2024-03-11 11:49] LABS: Alanine Aminotransferase 14 U/L (6-35); Albumin Level 4.2 g/dL (3.5-5.1); Alkaline Phosphatase 129 U/L (38-126); Anion Gap 11 mmol/L (4-12); Aspartate Amino Transferase 20 U/L (14-36); Bilirubin,Total 0.5 mg/dL (0.2-1.3); Blood Urea Nitrogen 36 mg/dL (7-17); Calcium 9.7 mg/dL (8.4-10.2); Carbon Dioxide 26 mmol/L (22-30); Chloride 104 mmol/L (98-107); Estimated Glomerular Filt Rate 31; Glucose 106 mg/dL (65-110); Potassium 4.3 mmol/L (3.4-5.0); Sodium 141 mmol/L (137-145)
== END 2024-03-11 10:25 | disposition home or self-care (01) ==
PROVIDERS: PCP Physician Assistant; Visit Provider Physician Assistant
DX: Z79.899 Other long term (current) drug therapy (principal)
CPT/HCPCS: 36415; 80048; 80076; 85025

== ENCOUNTER 2024-06-25 09:39 | Outpatient (CLI) | payer MEDICARE, SELFPAY ==
--- NOTE | ~2024-06-25 | MM_ITS ---
EXAMINATION: MM screening ivanna BI w pierre HISTORY: Screening TECHNIQUE: Craniocaudal and mediolateral oblique 3-D tomosynthesis images were obtained and synthetic 2-D images were generated. CAD analysis was submitted and interpreted. COMPARISON: Comparison to multiple prior studies sequentially, with oldest reviewed study dated 07/02. BREAST PARENCHYMAL COMPOSITION: Not dense: There are scattered areas of fibroglandular density. FINDINGS: There is no evidence of suspicious mass, calcification, or architectural distortion to sugg est malignancy in either breast. There has been no suspicious interval change. IMPRESSION: 1. No mammographic evidence of malignancy. 2. Recommend routine screening mammography in one year. BI-RADS Category 1: Negative Reviewed, dictated and finalized at location A.
--- OUTSIDE RECORDS SUMMARY | 2024-06-25 16:08 | XMS_ITS | Data Portability ---
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 dr. arevalo orders from gyne office. Bone density scan UTD normal. colonoscopy 2022 UTD. repeat 5 years. had 1 polyp EGD w/dilated a few years ago. Not available 04/21/2023 16:37:13 10/20/2023 10/20/2023 Mammogram is due in May. dr. arevalo orders from gyne office. Bone density scan UTD normal. colonoscopy 2022 UTD. repeat 5 years. had 1 polyp EGD is utd w/dilation a few years ago. Not available 10/25/2023 23:24:37 04/21/2024 04/21/2024 Mammogram is due in May. dr. arevalo orders from gyne office. Bone density scan UTD normal. colonoscopy 2022 UTD. repeat 5 years. had 1 polyp EGD is utd w/dilation a few years ago. Not available 04/21/2024 10:25:13 Plan of Treatment Reminders Order Date Submit Date Provider Last Modified By Organization Details Last Modified Time Details Appointments ANY 15 2024 08:30A M JOSE Huggins Not available Not available Not available Lab uric acid, serum or plasma 02/[address] [place] [address] Lab, [address] [place] [address], [id number], 04/21/2024 10:26:13 HbA1c (hemoglob in A1c), blood [address] [place] [address] Lab, [address] [place] [address], [address], 04/21/2024 10:26:13 BMP, serum or plasma [address] [place] [address] Lab, [address] [place] [address], [address], 04/21/2024 10:26:13 hepatic function panel, serum [address] [place] [address] Lab, [address] [place] [address], [address], 04/21/2024 10:26:13 CBC w/ auto diff [address] [place] [address] Lab, [address] [place] [address], [address], 04/21/2024 10:26:13 TSH + free T4, serum [address] [place] [address] Lab, [address] [place] [address], [address], 04/21/2024 10:26:13 CBC w/ auto diff [address] [place] [address] Lab, [address] [place] [address], [address], 03/23/2024 12:24:27 BMP, serum or plasma [address] [place] [address] Lab, [address] [place] [address], [address], 06/08/2024 10:15:40 hepatic function panel, serum [address] [place] [address] Lab, [address] [place] [address], [address], 06/08/2024 10:15:40 uric acid, serum or plasma 2023 024 [facility] Lab, [address] [place] [address], [address], 12/25/2023 10:05:04 HbA1c (hemoglob in A1c), blood 2023 024 [facility] Lab, [address] [place] [address], [address], 12/25/2023 10:05:47 BMP, serum or plasma 2023 024 [facility] Lab, [address] [place] [address], [address], 12/28/2023 15:33:13 hepatic function panel, serum 2023 024 [facility] Lab, [address] [place] [address], [address], 12/25/2023 10:05:35 CBC w/ auto diff 2023 024 [facility] Lab, [address] [place] [address], [address], 12/25/2023 10:06:14 TSH + free T4, serum 2023 024 [facility] Lab, [address] [place] [address], [address], 12/25/2023 10:06:01 uric acid, serum or plasma 2023 024 [facility] Lab, [address] [place] [address], [address], 05/13/2023 11:18:47 HbA1c (hemoglob in A1c), blood 2023 024 [facility] Lab, [address] [place] [address], [address], 05/13/2023 11:18:47 BMP, serum or plasma 2023 024 [facility] Lab, [address] [facility] [address] [place] [address], [address], 05/06/2023 16:48:37 hepatic function panel, serum 2023 024 [facility] Lab, [address] [facility] [address] [place] [address], [address], 05/13/2023 11:18:47 CBC w/ auto diff 2023 024 [facility] Lab, [address] [facility] [address] [place] [address], [address], 05/06/2023 16:36:13 lipid panel, serum 2023 024 [facility] Lab, [facility] [address], [address], 05/06/2023 16:51:33 TSH + free T4, serum 2023 024 [facility] Lab, [address] [facility] [address] [place] [address], [address], 05/13/2023 11:18:46 Referral orthopedi c surgeon referral 2024 025 [email or web address] [facility], [address], [address], [place], [address], 05/25/2024 10:48:22 Procedures None recorded. Surgeries None recorded. Imaging US, duplex, venous, lower extremity , unilatera l [address] (Imaging), [address] [place] [address] [place] [address], [phone], 03/21/2024 14:59:26 XR, knee, 3 view [address] (Imaging), [address] [place] [address] [place] [address], [phone], 03/21/2024 14:59:26 Medication Orders Wegovy 0.25 mg/0.5 mL subcutane ous pen injector 2024 025 [facility] [address] [place], [address], 04/21/2024 10:28:04 Medrol (Ronny) 4 mg tablets in a dose pack 2024 025 [facility] [address] [place], [address], 04/21/2024 09:55:47 Ozempic 0.25 mg or 0.5 mg (2 mg/1.5 mL) subcutane ous pen injector 2023 024 [facility], [facility], [place], [address], 10/20/2023 15:53:22 Patient TargetsNo targets recorded. Patient Instructions Encounter Date Encounter Id Patient Instructions Last Modified By Organization Details Last Modified Time 04/21/2024 [id number] A healthy lifestyle: care instructions [facility] Not available 04/21/2024 21:35:27 Reason for Referral Orthopedic Surgeon Referral for Osteoarthritis of right knee joint Referring Physician: Lexii Lin, Internal Medicine, Encounter Date: 04/21/2024 Results Created Date Observation Date Name Description Value Unit Range Abnormal Flag Note LastModifiedBy Organization Detail LastModifiedTime 03/09/1903/09/2024 XR, knee, 3 view No observ ation record ed. [email or web address] [place] [id number] [facility] [address], [place], [address], 04/21/2024 21:30:28 Result Notes None recorded. Problems Name Problem SNOMED Code Status Onset Date Resolution Date Notes Provider Name and Address Organization Details Recorded Time Body mass index 30+ - obesity 361745908 Active 2023 Raven Ma MA [facility], [place] - [facility] 08/27/202 4 15:53:57 Benign essential hypertensio n 3250633 Active 2023 JOSE Huggins Attn: Katiuska donahue,[address] [place], [address], [place] [facility] 4 16:27:36 Chronic kidney disease stage 3B 223916379 Active 2023 JOSE Huggins Attn: Katiuska donahue,[address] [place], [address], [place] [facility] 4 16:27:38 Gout 80062420 Active 2023 JOSE Huggins Attn: Katiuska donahue,[address] [place], [address], [place] [facility] 4 16:27:39 Impaired glucose tolerance 6634649 Active 2023 JOSE Huggins Attn: Katiuska donahue,[address] [place], [address], [place] [facility] 4 16:27:40 Hypothyroid ism 25889158 Active 2023 JOSE Huggins Attn: Katiuska donahue,[address] [place], [address], [place] [facility] 4 16:27:42 Acid reflux 675934978 Active 2023 JOSE Huggins Attn: Katiuska donahue,[address] [place], [address], [place] [facility] 4 16:27:43 Long-term drug therapy Active 2023 JOSE Huggins Attn: Katiuska donahue,[address] [place], [address], [place] [facility] 4 16:27:46 Osteoarthri tis of right knee joint 4724348585209 00 Active 2024 JOSE Huggins Attn: Katiuska donahue,[address] [place], [address], [place] [facility] 21:35:17 Problem Notes None recorded. Procedures Surgical History Date Name Laterality Status Provider Name and Address Organization Details Recorded Time Tubal Ligation completed Raven Ma MA [facility] 04/21/2023 16:08:45 cataract surgery completed Raven Ma MA [facility] 04/21/2023 16:09:19 Imaging Results Imaging Date Name Status LastModified by Organiz ation Details LastModified Time 03/09/2024 XR, knee, 3 view completed [email or web address] [facility] [address], [place], [address], 04/21/2024 21:30:28 Procedure Notes None recorded. Medical Equipment None Reported. Allergies Allergen ID Allergen Name Allergen Category Reaction Reaction Severity Criticality Documentation Date Start Date Code Code System Note Provider Name and Address Organization Details Recorded Time 612405 Product containin g angiotens in-conver ting enzyme inhibitor (product) medicatio n Not available Not available Not available 04/21/2023 11907 009 [facility] Raven Ma MA [place], [facility] 15:56:20 543528 Product containin g penicilli n (product) medicatio n Not available Not available Not available 04/21/2023 [id number] [facility] Raven Ma MA [place], [facility] 15:56:32 Medications Name Sig Start Date Stop Date Status Note LastModified by Organization Details LastModified Time atorvastati n 10 mg tablet TAKE 1 TABLET DAILY active Not Available Not Available No t Available famotidine 40 mg tablet TAKE 1 TABLET DAILY active Not Available Not Available No t Available meclizine 12.5 mg tablet TAKE 1 TABLET BY MOUTH THREE TIMES DAILY NEEDED FOR DIZZINESS 10/19 completed Not Available Not Available Not Available allopurinol 100 mg tablet TAKE 2 TABLETS DAILY active Not Available Not Available No t Available levothyroxi ne 50 mcg tablet TAKE 1 TABLET DAILY active Not Available Not Available No t Available prednisone 50 mg tablet TAKE 1 TABLET BY MOUTH ONCE DAILY FOR 5 DAYS 04/21 completed Not Available Not Available Not Available indapamide 1.25 mg tablet TAKE 1 TABLET DAILY active Not Available Not Available No t Available hydrochloro thiazide 25 mg tablet TAKE 1 TABLET DAILY active Not Available Not Available No t Available methylpredn isolone 4 mg tablets in a dose pack TAKE BY MOUTH DIRECTED ON INSIDE OF PACKAGE 04/21 completed Not Available Not Available Not Available ondansetron 4 mg disintegrat ing tablet Place 2 tablets twice a day by transling ual route. 10/19 completed Not Available Not Available Not Available levothyroxi ne 50mg 10/19 completed Not Available Not Available Not Available amlodipine 10 mg-olmesart an 40 mg tablet TAKE 1 TABLET DAILY active Not Available Not Available No t Available cholecalcif ze (vit D3) 1,000 unit-vitami n K2 (MK4) 100 mcg tablet Take by oral route. active Not Available Not Available No t Available Ozempic 0.25 mg or 0.5 mg (2 mg/1.5 mL) subcutaneou s pen injector active Not Available Not Available Not Available Ozempic 1 mg/dose (4 mg/3 mL) subcutaneou s pen injector INJECT 1MG SUBCUTANE OUSLY EVERY WEEK (DISCONTI NUE LOWER DOSE PEN) 04/21 completed Not Available Not Available Not Available Wegovy 0.25 mg/0.5 mL subcutaneou s pen injector active Not Available Not Available Not Available allopurinol 200 mg tablet Take 1 tablet every day by oral route. active Not Available Not Available No t Available Ozempic 0.25 mg or 0.5 mg (2 mg/3 mL) subcutaneou s pen injector Inject 0.5 mg every week by subcutane ous route. 04/21 completed Not Available Not Available Not Available Vitals Date Recorded Body weight Heart rate Respiratory rate Oxygen saturation Oxygen saturation in Arterial blood by Pulse oximetry Body temperature Body mass index (BMI) Body height Systolic blood pressure Diastolic blood pressure Provider Name and Address Organization Details Last Updated DateTime 4 443533. 21 g 85 /min 18 /min 96 % 96 % 97.4 [degF] 39.1 kg/m2 165.1 cm 140 mm[Hg] 70 mm[Hg] Raven Ma [place] - [facility] 4 16:05:07 Date Recorded Systolic blood pressure Diastolic blood pressure Provider Name and Address Organization Details Last Updated DateTime 04/21/2023 121 mm[Hg] 85 mm[Hg] JOSE Huggins Attn: Accounting,[address] [place], [address], [facility] 04/21/2023 16:34:34 Date Recorded Body height Body mass index (BMI) Body weight Respiratory rate Oxygen saturation Oxygen saturation in Arterial blood by Pulse oximetry Heart rate Systolic blood pressure Diastolic blood pressure Provider Name and Address Organization Details Last Updated DateTime 165.1 cm 37.3 kg/m2 269893. 98 g 18 /min 99 % 99 % 63 /min 126 mm[Hg] 80 mm[Hg] Raven Ma MA [facility] 15:55:32 Date Recorded Systolic blood pressure Diastolic blood pressure Provider Name and Address Organization Details Last Updated DateTime 10/20/2023 130 mm[Hg] 70 mm[Hg] JOSE Huggins Attn: Accounting,[address] [place], [address], [facility] 10/20/2023 16:26:39 Date Recorded Body height Body mass index (BMI) Body weight Oxygen saturation Oxygen saturation in Arterial blood by Pulse oximetry Heart rate Systolic blood pressure Diastolic blood pressure Provider Name and Address Organization Details Last Updated DateTime 165.1 cm 36.8 kg/m2 771700. 91 g 100 % 100 % 74 /min 136 mm[Hg] 80 mm[Hg] Raven Ma MA [facility] 16:35:00 Date Recorded Respiratory rate Systolic blood pressure Diastolic blood pressure Provider Name and Address Organization Details Last Updated DateTime 03/09/2024 18 /min 138 mm[Hg] 80 mm[Hg] JOSE Huggins Attn: Accounting, [address] [place], [address], [facility] 03/09/2024 17:06:45 Date Recorded Body height Body mass index (BMI) Body weight Respiratory rate Oxygen saturation Oxygen saturation in Arterial blood by Pulse oximetry Heart rate Systolic blood pressure Diastolic blood pressure Provider Name and Address Organization Details Last Updated DateTime 02/27/202 5 165.1 cm 35.9 kg/m2 09590.9 5 g 18 /min 100 % 100 % 108 /min 122 mm[Hg] 80 mm[Hg] Raven Ma MA [facility] 09:58:42 Date Recorded Systolic blood pressure Diastolic blood pressure Provider Name and Address Organization Details Last Updated DateTime 04/21/2024 110 mm[Hg] 80 mm[Hg] JOSE Huggins Attn: Accounting[address] [place], [address], [facility] 04/21/2024 10:27:01 Social History Question Answer Notes LastModified by Organizat ion Details LastModified Time Tobacco Smoking Status Former Smoker quit [facility] Ma [facility], [facility] 04/21/2023 16:07:44 Do You Have An Advance Directive? No Information not available 04/21/2024 What Is Your Level Of Alcohol Consumption? None Wine Every Once In A While Information not available 04/21/2023 Are You Blind Or Do You Have Difficulty Seeing? No Information not available 04/21/2024 What Is Your Level Of Caffeine Consumption? Moderate Cup Of Cofee Every 2 Days Information not available 04/21/2023 In The 14 Days Before Symptom Onset, Have You Had Close Contact With A Laboratory-confir med COVID-19 While That Case Was Ill? No Information not available 04/21/2023 In The 14 Days Before Symptom Onset, Have You Had Close Contact With A Person Who Is Under Investigation For COVID-19 While That Person Was Ill? No Information not available 04/21/2023 Have You Been To An Area Known To Be High Risk For COVID-19? No Information not available 04/21/2023 Are You Deaf Or Do You Have Serious Difficulty Hearing? No Information not available 04/21/2024 What Type Of Diet Are You Following? REGULAR Information not available 04/21/2024 Are There Any Guns Present In Your Home? No Information not available 04/21/2023 What Was The Date Of Your Most Recent Tobacco Screening? 04/21/2024 Information not available 04/21/2024 What Is Your Current Pack Years? 30ormorepack years Information not available 04/21/2023 Do You Use Your Seat Belt Or Car Seat Routinely? Yes Information not available 04/21/2024 Do You Have Smoke And Carbon Monoxide Detectors In Your Home? Yes Information not available 04/21/2023 Do You Use Any Illicit Or Recreational Drugs? No Information not available 04/21/2023 Do You Use Sunscreen Routinely? No Information not available 04/21/2023 Has Tobacco Cessation Counseling Been Provided? Yes Information not available 04/21/2023 On What Date Was Tobacco Cessation Counseling Provided? 04/21/2024 Information not available 04/21/2024 How Many Years Have You Smoked Tobacco? 33 Information not available 04/21/2023 Do You Or Have You Ever Used Any Other Forms Of Tobacco Or Nicotine? No Information not available 04/21/2023 Sex: Female Functional Status Question Answer Note LastModified by Organization D etails LastModified Time Are you able to care for yourself? Yes Information n ot available 04/21/2024 What is your exercise level? None Information not available 04/21/2024 Mental Status None recorded. Family History Relationship Description Onset Age of this Age Resolved Age Notes LastModified by Organization Details LastModified Time Mother Diabetes mellitus [email or web address] Not available 2023 16:06:14 Father Malignant neoplasm of lung 62 tcarterma Not available 2023 16:06:33 Sister Disorder of lung 77 sister passed [email or web address] Not available 03/09/2024 16:32:17 Medical History Condition Response Thyroid Problems N Kidney or Bladder Problems Y GI Problems N Depression N COPD N Blood Clots N Skin Problems N Heart Attack (CA) N Diabetes N Anxiety Disorder N Muscle, Joint, or Bone Problems N Seizures/Epilepsy N Acid Reflux (GERD) N Cancer N Stroke N Asthma Y High Cholesterol N Hepatitis N Liver Disease N Headaches N Osteoporosis N Heart Failure N Gynecological History Statement/Question Response Menses Monthly N Date of LMP On BCP's at Conception? N Obstetrics History GPAL:G 2 P 2 0 0 1 Type Value Multiple Births 0 Full Term 2 Induced 0 Spontaneous 0 Premature 0 Living 1 Ectopics 0 Total 2 Immunizations Vaccine Type Date Status Note Provider Nam e and Address Organization Details Recorded Time zoster recombinant 05/17/2021 completed Raven Ma [place] null, [place] [facility] 03/09/2024 16:32:25 zoster recombinant 01/30/2021 completed LIZA Epstein, [place] [facility] 03/09/2024 16:32:25 Influenza, high-dose, quadrivalent, PF 11/20/2021 completed Raven [place] [facility] 03/09/2024 16:32:25 Influenza, adjuvanted, quadrivalent, PF 11/24/2022 completed [place] [facility] 03/09/2024 16:32:25 Influenza, adjuvanted, quadrivalent, PF 01/30/2021 completed [place] [facility] 03/09/2024 16:32:25 COVID-19, mRNA, LNP-S, PF, 30 mcg/0.3 mL dose 04/20/2020 completed [place] [facility] 03/09/2024 16:32:25 COVID-19, mRNA, LNP-S, PF, 30 mcg/0.3 mL dose 05/11/2020 completed [place] [facility] 03/09/2024 16:32:25 COVID-19, mRNA, LNP-S, PF, 30 mcg/0.3 mL dose 12/13/2020 completed [place] [facility] 03/09/2024 16:32:25 COVID-19, mRNA, LNP-S, bivalent, PF, 30 mcg/0.3 mL dose 11/20/2021 completed [place] [facility] 03/09/2024 16:32:25 COVID-19, mRNA, LNP-S, PF, sunny-sucrose, 30 mcg/0.3 mL 11/24/2022 completed [place] [facility] 03/09/2024 16:32:25 Past Encounters Encounter ID Performer Location Encounter Start Date Encounter Closed Date Diagnosis/Indication Diagnosis SNOMED-CT Code Diagnosis ICD10 Code Diagnosis Note [id number] Corby Carroll MD [facility] [address] [place] [address] 04/21/2023 15:34:33 04/21/2023 16:40:09 Benign essential hypertension 0693274 I10 well-contr olled blood pressure on amlodipine 10/olmesar teixeira 40mg daily, HCTZ 25mg daily, indapamide 1.25mg daily. Gout 50013425 M10.9 stable on allopurino l 200mg daily. due for uric acid lab Acid reflux 172587559 K2 1.9 stable on famotidine 40mg daily. Hypothyroidism 07041241 E03.9 stable on levothyrox ine therapy. due for updated TFT panel. Long-term drug therapy 020196393 Z79.899 routine bmp, hepatic panel and cbc due. Cholesterol screening 27 7976310 Z13.220 fasting lipids due. Chronic ki dney disease stage 3B 312204288 N18.32 pt is following with nephrology routinely. Impaired g lucose tolerance 4151575 R73.03 hx of IGT. due for updated A1c. start ozempic course if insurance will authorize. [id number] Corby Carroll MD [facility] [place] [address] [place] [address] 10/20/2023 15:09:44 10/20/2023 16:47:48 Body mass index 30+ - obesity 134946477 Z68.37 BMI is 37.3 Benign ess ential hypertension 7653422 I10 well-contr olled blood pressure on amlodipine 10/olmesar teixeira 40mg daily, HCTZ 25mg daily, indapamide 1.25mg daily which was added by nephrology Chronic ki dney disease stage 3B 278871649 N18.32 pt is following with nephrology routinely. Gout 11798050 M10.9 stable on allopurino l 200mg daily. due for uric acid lab Acid reflux 649666764 K2 1.9 stable on famotidine 40mg daily. Impaired g lucose tolerance 9958076 R73.03 next script of ozempic. increase to 1mg weekly. she will for now increase to 0.5mg once weekly. she has been on 0.25mg this whole time. Hypothyroidism 07115171 E03.9 stable on levothyrox ine therapy. due for updated TFT panel. Long-term drug therapy 804210606 Z79.899 routine bmp, hepatic panel and cbc due. [id number] Corby Carroll MD [facility] [address] [place] [address] 03/09/2024 16:23:28 03/21/2024 14:59:26 Long-term drug therapy 275189470 Z79.899 routine bmp, hepatic panel and cbc labs are due. Swelling o f knee joint 697429671 M25.469 Check baseline x-ray of the right knee joint.X-ra y shows tricompart ment arthritis of the knee joint Swelling of lower leg 44 9083524 R22.41 Refer for stat right lower extremity venous Doppler to rule out any DVT.Stat hold and call Doppler is negative for DVT. Pain of ri ght knee joint 9524313541 26196 M25.561 Start a Medrol Dosepak for inflammati on and discomfort in the right knee [id number] Corby Carroll MD [facility] [address] [place] [address] 04/21/2024 09:42:51 04/21/2024 10:30:48 Benign essential hypertension 7633192 I10 110/80 on blood pressure today. Well-contr olled blood pressure on amlodipine 10/olmesar teixeira 40mg daily, HCTZ 25mg daily, indapamide 1.25mg daily which was added by nephrology Chronic ki dney disease stage 3B 273918090 N18.32 pt is following with nephrology routinely. Most recent creatinine was 1.93 with an EGFR of 31 Impaired g lucose tolerance 8323996 R73.03 insurance stopped coverage on ozempic. Following A1c repeat labs due in August Gout 02016611 M10.9 stable on allopurino l 200mg daily. due for uric acid lab in August Hypothyroidism 80618036 E03.9 stable on levothyrox ine therapy. due for updated TFT panel in August Acid reflux 067428096 K2 1.9 stable on famotidine 40mg daily. Body mass index 30+ - obesity 700061470 Z68.37 BMI is 35.9 patient has lost some weight but is now unable to be on Ozempic due to insurance not providing coverage. We will see it for insurance has any Wegovy coverage Long-term drug therapy 176565904 Z79.899 routine bmp, hepatic panel and cbc due in August Osteoarthr itis of right knee joint 5455936608 41426 M17.11 Refer to ortho for right knee osteoarthr itis Obesity 901823487 E66.9 discussed healthy diet, exercise, controllin g carbohydra sunshine and added sugars in the diet. Continue efforts Health Concerns Section Related Observation LastModified by Organization Detai ls LastModified Time None Recorded Concern Status LastModified by Organization Details LastModified Time None Recorded Advance Directives Directive N: Payers Encounter Date Sequence Insurance Name Policy Number Policy Sprague Covered Member ID Sprague Member ID Guarantor Name 04/21/2023 1 [employer] (MEDICARE REPLACEMENT PPO) [id number] Jolie Montelongo [id number] Jolie Montelongo 10/20/2023 1 [employer] (MEDICARE REPLACEMENT PPO) [id number] Jolie Montelongo [id number] Jolie Montelongo 03/09/2024 1 [employer] (MEDICARE REPLACEMENT PPO) [id number] Jolie Montelongo [id number] Jolie Montelongo 04/21/2024 1 [employer] (MEDICARE REPLACEMENT PPO) [id number] Maitemichelle Emili Montelongo [id number] Maitemichelle Reginald Notes Date Note Type Note Provider Name and Address Organization Details Recorded Time 024 text/ht ml Generic HPI TemplateReported bypatient.Notes:CKD stage 3, following with nephrology now. IGT hx. Gout hx on allopurinolHypertensionReported bypatient.Notes:stable on multiple agents.Reflux/GERDReported bypatient.Notes:stable on famotidine therapyThyroidReported bypatient.Notes:stable on thyroid medication. JOSE Huggins Attn: Accounting, [address] [facility], [place], [address], [facility] 04/26/2023 20:46:57 024 text/ht ml Generic HPI TemplateReported bypatient.Notes:CKD stage 3, following with nephrology now. IGT hx. Gout hx on allopurinolHypertensionReported bypatient.Notes:stable on multiple agents. Amlodipine 10 mg/olmesartan 40 mg daily, hydrochlorothiazide 25 mg dailyReflux/GERDReported bypatient.Notes:stable on famotidine therapyThyroidReported bypatient.Notes:stable on thyroid medication. Due for routine labs Patient has a history of impaired glucose tolerance and is on Ozempic therapy now JOSE Huggins Attn: Accounting, [address] [facility], [place], [address], [facility] 10/25/2023 23:26:17 025 text/ht ml KneeReported bypatient.Notes:c/o right leg pain. Pt states she cannot take ibuprofen but has been taking tylenol for pain. Tylenol helps a little with the pain, taking extra strength tylenol daily. Pt states pain wakes her up at night. She did take some ibuprofen because it helped with the pain more but she is afraid to take it when she is not supposed to. Pt states pain is from her right knee down to the ankle. She states she has some discomfort below the buttock as well, but it is not always painful there. States pain overall is not constant, but is sometimes bad enough that she limps and is up to 7/10 pain. Pain is worse at night depending on how much she has done throughout the day. JOSE Huggins Attn: Accounting, [address] [facility], [place], [address], [facility] 03/26/2024 23:08:12 025 text/ht ml Generic HPI TemplateReported bypatient.Notes:CKD stage 3, following with nephrology now. IGT hx. Gout hx on allopurinolHypertensionReported bypatient.Notes:stable on multiple agents. Amlodipine 10 mg/olmesartan 40 mg daily, hydrochlorothiazide 25 mg daily KneeReported bypatient.Notes:c/o right leg pain. Pt states she cannot take ibuprofen but has been taking tylenol for pain. Tylenol helps a little with the pain, taking extra strength tylenol daily. Pt states pain wakes her up at night. She did take some ibuprofen because it helped with the pain more but she is afraid to take it when she is not supposed to. Pt states pain is from her right knee down to the ankle. She states she has some discomfort below the buttock as well, but it is not always painful there. States pain overall is not constant, but is sometimes bad enough that she limps and is up to 7/10 pain. Pain is worse at night depending on how much she has done throughout the day.Reflux/GERDReported bypatient.Notes:stable on famotidine therapyThyroidReported bypatient.Notes:stable on thyroid medication. Due for routine labs Patient has a history of impaired glucose tolerance and insurance stopped paying for Ozempic unfortunately. She was doing well on JOSE Huggins Attn: Accounting, [address] [place], [address], [facility] 04/21/2024 21:35:43 OBGyn Episode No OBEpisode recorded.
--- OUTSIDE RECORDS SUMMARY | 2024-06-25 16:08 | XMS_ITS | Referral Summary ---
Author Organization [facility] [address] Address [address] [employer] [place] [address] Phone Care Team Providers Care Railroad Cook Name Role Phone Octaviosienna Lexiioneyda GARCIA Primary Care Pr ovider Encounters Date Type Department Care Team Description 05/19/2024 11:30 AM CDT Office Visit [facility] Sports Medicine and Primary Care at [address] [place] [phone] Corby Lugo DO Primary osteoarthritis of right knee (Primary Dx) 05/09/2024 Documentation [facility] Sports Medicine and Primary Care at [address] [place] [phone] Ctahryn Carlos MA 05/06/2024 Telephone [facility] Orthopedics and Sports Medicine [address] [facility] [address], [place] [phone] Corby Lugo DO 05/06/2024 10:15 AM CDT Ancillary Procedure [facility] Imaging at [address] [phone] Right knee pain, unspecified chronicity 05/06/2024 10:00 AM CDT Office Visit [facility] Sports Medicine and Primary Care at [address] [place] [phone] Corby Lugo DO Right knee pain, unspecified chronicity (Primary Dx); Primary osteoarthritis of right knee from Last 3 Months Allergies Active Allergy Reactions Criticality Noted Date Comments Jeremiah Inhibitors Swelling Reaction: swelling, Arb-Angiotensin Receptor Antagonist Hydrochlorothiazide Lisinopril Penicillin G Medications fluticasone (FLONASE) 50 mcg/actuation nasal spray inhale 1 spray by intranasal route every day in each nostril 1 spray 0 6 Active ipratropium (ATROVENT) 0.03 % nasal spray spray 2 spray by intranasal route 2- 3 times every day in each nostril 1 spray 0 6 Active Additional Information Patient not taking.Reported on 05/19/2024 atorvastatin (LIPITOR) 40 mg tablet TAKE 1 TABLET DAILY (REPLACES CRESTOR) 90 tablet 7 Active Additional Information Patient not taking.Reported on 05/06/2024 vortioxetine (TRINTELLIX) 10 mg tabletIndicatio ns:major depressive disorder Take 1 tablet (10 mg total) by mouth daily for 28 days. 28 tablet 8 Active IBU 800 mg tablet TAKE 1 TABLET 3 TIMES A DAYAS NEEDED FOR PAIN 90 tablet 5 8 Active Additional Information Patient not taking.Reported on 05/19/2024 amlodipine-olme sartan (SONIDO) 10-40 mg per tabletIndicatio ns:hypertension Take 1 tablet by mouth daily. 90 tablet 1 8 Active atorvastatin (LIPITOR) 40 mg tablet Take 1 tablet (40 mg total) by mouth daily. 90 tablet 8 Active Additional Information Patient not taking.Reported on 05/19/2024 triamterene-hyd roCHLOROthiazid e (triamterene-hy droCHLOROthiazi de) 37.5-25 mg per tablet/capsule Take 1 tablet/capsule by mouth daily. 90 tablet 2 8 Active allopurinoL (ZYLOPRIM) 100 mg tablet Take 1 tablet (100 mg total) by mouth daily Active levothyroxine (SYNTHROID) 50 mcg tablet Take 1 tablet (50 mcg total) by mouth director gift before breakfast Active cyanocobalamin- cobamamide 5,000-[address] under the tongue Active indapamide (LOZOL) 1.25 mg tablet Take 1 tablet (1.25 mg total) by mouth daily 5 Active hydroCHLOROthia zide (HYDRODIURIL) 25 mg tablet Take 1 tablet (25 mg total) by mouth daily Active famotidine (PEPCID) 40 mg tablet Take 1 tablet (40 mg total) by mouth daily Active aspirin 81 mg enteric coated tablet Take 1 tablet (81 mg total) by mouth daily 9 Active Active Problems Problem Noted Date Diagnosed Date Anemia 06/16/2022 Abnormal findings on diagnos tic imaging of other specified body structures 10/31/2020 Overview (10/31/2020): Added automatically from request for surgery [id number] Depression 08/31/2017 Assessment & Plan (08/31/2017 6:40 PM CDT): This patient lost her approximately 6 years ago her over 30 years. She also lost her son up approximately 14 months ago. She continues to have some grief she is improving with this. Has some depression prior to the loss of her son. PHQ score is a moderate level at 13. She is willing to accept antidepressant medication which I am going to start her on t Osteoarthritis 08/31/2017 Assessment & Plan (08/31/2017 6:49 PM CDT): Patient continues have osteoarthritis low back pain multiple joints stable at this time. Patient's handicap parking permit is renewed. Grief at loss of child 04/01/2017 Assessment & Plan (04/01/2017 7:02 PM TICK SEWER): Patient spirits grief loss of her child her some was a patient of mine. Her son was in his early 40s she has a daughter who is approximately 2 years old was doing well in good health. He had a chronic illness of approximately 4- 5 years. 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 He was admitted to [facility] where he had been managed for his sarcoidosis. He developed seizure seizure after being admitted. Patient has some support in going through this. She lost her will also patient mat approximately 5 years ago from pancreatic cancer. She is having some repetitive thoughts sleeps sometimes fragment other times reasonably good. Discussed with her going to grief counseling. Aware that she could go to a grief counseling through hospice even are her son was not in hospice. Advised to my knowledge that was available to her and she will check into it. Discussed whether not she wanted antidepressants/and anxiety. At this time she would like to continue to ventilate her feelings and concerns Moderate persistent asthma with exacerbation 07/2016 Assessment & Plan (12/29/2016 6:19 PM TICK SEWER): Patient has been coughing up green sputum, wheezing with some chest tightness shortness of breath wound is walking. Symptoms began 6 days ago . No fever no chills no night no body aches. Patient's out albuterol HFA. Couple occasions she cough SOB recently she thought she was going to pass out. Exam today she has no wheezing no shortness of breath. However she did become short of breath walking from the elevator to treatment room. Patient can talk in complete sentences and has no accessory muscle use. Plans at this time resume albuterol HFA, gave this patient samples of Spiriva Respimat to use once daily. Doxycycline 100 milligrams twice a day for 10 days. Patient forms she is significantly worse she needs to go to emergency room she does not completely clear she needs to call me. Stress and adjustment reaction 11/24/2016 Assessment & Plan (11/24/2016 5:45 PM CDT): . Patient has a lot of stress she has a adult son late 30s who has sarcoidosis involving his neurological system, is disabled him. Patient's son also has diabetes he has lost vision in his left eye. Patient has declined to apply for social security disability which he certainly qualifies for and therefore has no insurance patient recently had a meningitis was not expected to live but is now recovered. The psychotic during some is peers at time of his meningitis. At this point patient is feels stressed involving the son's health and his lack of cooperation in getting social security disability and possibly starting Medicare health take care of himself. This patient son has significant neurological deficit secondary to sarcoidosis. Her son was the patient my care for number of years have not seen in for least 8 years. Patient also of pancreatic carcinoma approximately 5 years ago. Hypertension 07/09/2013 Overview (05/30/2016): Hypertension Assessment & Plan (08/31/2017 6:41 PM CDT): Hypertension is worsening. Continue current treatment regimen. Dietary sodium restriction. Weight loss. Regular aerobic exercise. Blood pressure will be reassessed at the next regular appointment. Assessment & Plan (04/01/2017 7:00 PM TICK SEWER): Hypertension is unchanged. Continue current treatment regimen. Dietary sodium restriction. Weight loss. Continue current medications. Blood pressure will be reassessed at the next regular appointment. Assessment & Plan (11/24/2016 5:46 PM CDT): Hypertension is unchanged. Continue current treatment regimen. Dietary sodium restriction. Weight loss. Continue current medications. Blood pressure will be reassessed at the next regular appointment. Patient has spinal stenosis his back pain and cannot do aerobic exercise due to degenerative joint disease as well. She has lost weight. Hyperlipidemia 07/09/2013 Overview (05/30/2016): Hyperlipidemia Assessment & Plan (11/24/2016 5:47 PM CDT): Will check a fasting lipid profile next visit. Gout 07/09/2013 Overview (05/31/2016): Gout Assessment & Plan (08/31/2017 6:41 PM CDT): Gout is stable no recent episodes. Assessment & Plan (04/01/2017 7:01 PM TICK SEWER): Patient is asymptomatic at this time regarding gout she has had several attacks in the past. Her last uric acid level was acceptable. Assessment & Plan (11/24/2016 5:47 PM CDT): Patient has not had a gout attack for at least 2 years. Social History Tobacco Use Types Packs/Day Years Used Date Smoking Tobacco: Never Smokeless Tobacco: Never Alcohol Use Standard Drinks/Week Comments No 0 (1 standard drink = 0.6 oz pur e alcohol) AUDIT-C Answer Date Recorded Q1: How often do you have a drink containing alcohol? Never 05/06/2024 Q2: How many drinks containi ng alcohol do you have on a typical day when you are drinking? Patient does not drink Q3: How often do you have si x or more drinks on one occasion? Never 05/06/2024 Personal Safety Answer Date Recorded Have you ever been in or are you currently in a harmful physical or emotional relationship or is someone making you feel afraid or unsafe? Denies 07/30/2022 Comments Unknown Sex and Gender Information Value Date Recorded Sex Assigned at Not on file Legal Sex Female 1:25 PM TICK SEWER Gender Identity Not on file Sexual Orientation Not on file Last Filed Vital Signs Vital Sign Reading Time Taken Comments Blood Pressure 116/78 05/19/2024 11:29 AM CDT Pulse 91 05/19/2024 11:29 AM CDT Temperature 36.8 C (98.2 F) 07/30/2022 1:51 PM CDT Respiratory Rate 16 05/06/2024 10:15 AM CDT Oxygen Saturation 95% 07/30/2022 1:51 PM CDT Inhaled Oxygen Concentration - - Weight 98.4 kg (217 lb) 05/19/2024 11:29 AM CDT Height 160 cm (5' 3 ) 05/06/2024 10:15 AM CDT Body Mass Index 38.44 05/06/2024 10:15 AM CDT Plan of Treatment Not on file Procedures Procedure Name Priority Date/Time Associated Diagnosis Comments OR ARTHROCENTESIS ASPIR&/INJ MAJOR JT/BURSA W/US Routine 05/19/2024 11:30 AM CDT Primary osteoarthritis of right knee XR KNEE RIGHT 4 OR MORE VIEWS Schedule Routine, Read Routine (OP Routine) 05/06/2024 10:09 AM CDT Right knee pain, unspecified chronicity COLONOSCOPY 07/30/2022 11:50 AM CDT from Last 3 Months or Most Recently Relevant to Health Maintenance Results * OR ARTHROCENTESIS ASPIR&/INJ MAJOR JT/BURSA W/US (05/19/2024 11:30 AM CDT) Narrative Corby Lugo DO - 05/19/2024 11:30 AM CDT Corby Lugo DO 05/19/2024 11:46 AM Large Joint Injection w/ Ultrasound Guidance: R knee Performed by: Corby Lugo DO Authorized by: Corby Lugo DO Large Joint Injection/Aspiration: Consent Given by: Patient Site marked: the procedure site was marked Timeout: prior to procedure the correct patient, procedure, and site was verified Verbal consent obtained: Yes Supporting Documentation: Indications: Pain Procedure Details: Location: Knee Site: R knee Prep: patient was prepped and draped in usual sterile fashion Prep: patient was prepped using a clean technique Needle Size: 22 G Approach: Lateral Ultrasound guided: Yes Fluroscopic guidance: No Ultrasound guidance used for: Real-time guidance Sterile ultrasond techniques: Sterile gel and sterile probe covers were used Ultrasound note: Ultrasound guided right knee injection Patient name: Jolie Mittal Performing physician: ARUN Rodrigues DO, CAQSM Reason for procedure: Right knee osteoarthritis Patient is supine with the right knee in passive 30 of flexion. The lateral knee was sterilized using Hibiclens. The L4-12 T transducer was placed on the proximal portion of the knee identifying the suprapatellar recess and joint capsule in long axis. The probe was moved to short axis and again the joint capsule was identified. A 22 gauge 1.5 in needle was inserted on the lateral aspect of the knee at the level of the capsule, and the needle tip was identified in the subcutaneous tissue. The needle was advanced, in real time, to the capsule and once noted within the capsule, a substrate of 3ml of Durolane was injected into the joint capsule. Flow of fluid within the joint capsule was noted for confirmation of placement. Needle was removed, the area was cleansed, and covered with a Band-Aid. Impression: 1 - successful injection of the right knee capsule under ultrasound guidance Medications: 60 mg hyaluronate sodium, stabilized 60 mg/3 mL us Corby Lugo DO IN CLINIC/BEDSIDE JENNIFER LEAL Final Result * XR Knee Right 4 or More Views (05/06/2024 10:09 AM CDT) Anatomical Region Laterality Modality Lower Extremities, Knee Right Digital Radiography 05/12/2024 12:2 2 PM CDT Narrative 05/12/2024 12:23 PM CDT EXAM DESCRIPTION: XR KNEE RIGHT 4 OR MORE VIEWS REASON FOR STUDY: Pain Pt complains of posterior right knee pain x 2 months. No prior surgery or injury FINDINGS: Four views submitted without comparison. No acute fracture. Alignment is normal. Fxtj-rj-qrfcgvqf patellofemoral predominant tricompartmental right knee osteoarthritis. Moderate-sized knee effusion is present. IMPRESSION: Clwa-ey-jtgmcbdc patellofemoral predominant tricompartmental right knee osteoarthritis. Moderate-sized right knee effusion. THIS IS AN ELECTRONICALLY VERIFIED FINAL REPORT 05/12/2024 12:23 PM - Electronically signed by Corby Gaona M.D. T: Report ID: [id number] Reading Location: [id number] Procedure Note Corby Gaona MD - 05/12/2024 EXAM DESCRIPTION: XR KNEE RIGHT 4 OR MORE VIEWS REASON FOR STUDY: Pain Pt complains of posterior right knee pain x 2 months. No prior surgery or injury FINDINGS: Four views submitted without comparison. No acute fracture. Alignment is normal. Dshs-yx-yuhzygnq patellofemoral predominant tricompartmental right knee osteoarthritis. Moderate-sizedknee effusion is present. IMPRESSION: Cvzd-ny-iedqxufg patellofemoral predominant tricompartmental right knee osteoarthritis. Moderate-sized right knee effusion. THIS IS AN ELECTRONICALLY VERIFIED FINAL REPORT 05/12/2024 12:23 PM - Electronically signed by Corby Gaona M.D. T: Report ID: [id number] Reading Location: [id number] Corby Lugo DO IMG XR PROCEDURES Shari l Result * COLONOSCOPY (07/30/2022 11:50 AM CDT) Anatomical Region Laterality Modality Other Narrative Procedure Note Jamie Clements MD - 07/30/2022 11:50 AM CDT [facility] Patient Name: Jolie Mittal Procedure Date: 07/30/2022 11:50 AM Date of : 1955 Admit Type: Outpatient Age: 67 Gender: Female Attending MD: Jamie Clements M.D. Room: [facility] RO[facility] 1 Note Status: Finalized Patient Profile: This is a 67 year old female. History of colonpolyps in the past. No family history of colon cancer. Patient had recent finding of anemia through blood testing with primary care physician. Records of her previous labs are not available for review withinour system. Procedure: Colonoscopy Indications: High risk colon cancer surveillance: Personalhistory of colonic polyps, Last colonoscopy: July 2017 Referring MD: FABRICIO RaoC Providers: Jamie Clements M.D. Impression: - Diverticulosis in the entire examined colon. - One 8 mm polyp in the proximal transverse colon, removed using injection-lift and a cold snare. Resected and retrieved. - Internal hemorrhoids. Recommendation: - Await pathology results. - Repeat colonoscopy in 5 years for screeningpurposes. - Continue present medications. No lesions noted within the colon to explain blood loss or anemia. Follow up with primary care physician for further evaluation as needed Medicines: Monitored Anesthesia Care Complications: No immediate complications. Estimated Blood Loss: Estimated blood loss: none. Procedure: Pre-Anesthesia Assessment: - Prior to the procedure, a History and Physicalwas performed, and patient medications and allergieswere reviewed. The patient's tolerance of previous anesthesia was also reviewed. The risks andbenefits of the procedure and the sedation options and risks were discussed with the patient. All questions were answered, and informed consent was obtained. Prior Anticoagulants: The patient has taken noanticoagulant or antiplatelet agents. ASA Grade Assessment: III -A patient with severe systemic disease. Afterreviewing the risks and benefits, the patient was deemed in satisfactory condition to undergo the procedure. The benefits, risks and alternatives of theprocedure and sedation were discussed and informed consentwas obtained. All questions were answered. Please referto the signed informed consent document in the medical record. The bowel preparation used was Miralax via split dose instruction. The bowel preparation usedwas bisacodyl tablets via split dose instruction. The scope was passed under direct vision. The Pediatric Colonoscope PCF-H190L [id number] was introducedthrough the anus and advanced to the the cecum, identifiedby appendiceal orifice and ileocecal valve. Thequality of the bowel preparation was good. Bowel prep was administered using a split dose. Findings: The perianal and digital rectal examinations were normal. The cecum appeared normal. Multiple small-mouthed diverticula were found in the entire colon. No bleeding in the colon noted. An 8 mm polyp was found in the proximal transverse colon. The polypwas sessile. The polyp was removed with a saline injection-lift technique using a cold snare. Resection and retrieval were complete. Internal hemorrhoids were found during retroflexion. The hemorrhoids were small. Electronically signed by Jamie Clements M.D. Jamie Clements M.D. 07/30/2022 1:28:10 PM Number of Addenda: 0 Note Initiated On: 07/30/2022 11:50 AM Procedure Code(s): --- Professional --- 54817, Colonoscopy, flexible; with removal of tumor(s), polyp(s), or other lesion(s) by snare technique 73025, Colonoscopy, flexible; with directed submucosal injection(s),any substance Diagnosis Code(s): --- Professional --- Z86.010, Personal history of colonic polyps K64.8, Other hemorrhoids D12.3, Benign neoplasm of transverse colon (hepatic flexure orsplenic flexure) K57.30, Diverticulosis of large intestine without perforation orabscess without bleeding CPT copyright 2020 [employer]. All rights reserved. The codes documented in this report are preliminary and upon desktop specialist reviewmay be revised to meet current compliance requirements. Recognized by the [employer] for promoting quality in endoscopy Jamie Clements MD ENDOSCOPY PROCEDURES Final Result from Last 3 Months or Most Recently Relevant to Health Maintenance Insurance A[employer] MEDICARE COUNTS INCLUDE 234 BEDS AT THE [facility] MEDICARE AETNA MEDICARE INCLUDE 234 BEDS AT THE [facility] MEDICARE Address: [facility] [id number] [place] [phone] [employer] MEDICARE [facility] Address: [address] [address] Advance Directives For more information, please contact: [phone] * Full Code (Latest Code Status on File) Date Activated Date Inactivated Comments 07/30/2022 11:26 AM 07/30/2022 6:19 PM * Full Code Date Activated Date Inactivated Comments 07/30/2022 11:26 AM 07/30/2022 11:26 AM * Full Code Date Activated Date Inactivated Comments 01/15/2021 7:47 AM 01/15/2021 1:29 PM * Full Code Date Activated Date Inactivated Comments 01/15/2021 7:47 AM 01/15/2021 7:47 AM * Full Code Date Activated Date Inactivated Comments 08/04/2017 9:21 AM 08/04/2017 1:43 PM Care Teams Railroad Cook Relationship Specialty Start Date End Date Lexii Mason PA PCP - General Physician Tool And Cutter Grinder 07/30/22
--- OUTSIDE RECORDS SUMMARY | 2024-06-25 16:08 | XMS_ITS | Data Portability ---
Author Organization [place] [facility], Main Office Address [address] [place] [address] Assessment No assessment recorded. Plan of Treatment Reminders Order Date Submit Date Provider Last Modified By Organization Details Last Modified Time Details Appointments None recorded. Lab HbA1c (hemoglobin A1c), blood 2022 024 [email or web address] Not available 4 08:25:58 BMP, serum or plasma 2022 024 [email or web address] Not available 4 08:25:59 hepatic function panel, serum 2022 024 [email or web address] Not available 4 08:25:59 lipid panel, serum 2022 024 [email or web address] Not available 4 08:25:58 iron + TIBC + ferritin, serum 2022 024 [email or web address] Not available 4 08:25:58 CBC w/ auto diff 2022 024 [email or web address] Not available 4 08:25:59 TSH + free T4, serum 2022 024 [email or web address] Not available 4 08:25:58 Referral nephrologis t referral 2022 023 [email or web address] Lencho Penn MD, [address] [facility] [address], [facility] [address], [place], [address], 4 09:45:06 Procedures None recorded. Surgeries None recorded. Imaging CT, urogram - without contrast due to renal function. 2022 023 [email or web address] Not available 3 09:07:29 Medication Orders None recorded. Patient TargetsNo targets recorded. Patient InstructionsNo instructions recorded. Reason for Referral Supply Aide Referral for Ch ronic kidney disease Referring Physician: Lexii Mason, Internal Medicine, Encounter Date: 10/29/2022 Results Created Date Observation Date Name Description Value Unit Range Abnormal Flag Note LastModifiedBy Organization Detail LastModifiedTime 09/14/19 21 09/13/2020 RF, upper gastr ointe britta l tract , w/ contr ast PO No observ ation record ed. MIGRATION. [facility] ([facility]) [address] [place] [address] [address] [facility], [place], [address], 04/23/2022 06:20:53 02/01/20 21 01/31/2021 upper endos copy proce dure (EGD) (PROC ) No observ ation record ed. MIGRATION. Jamie Clements [address] [place] [address] Dr Francisco B [address], [address], 04/23/2022 06:20:53 09/07/19 22 09/03/2021 US, pelvi s, compl ete No observ ation record ed. MIGRATION. [address] [place] [address], [place], [address], 04/23/2022 06:20:53 10/04/19 22 08/02/2021 MAMMO , diagn ostic , digit al, unila teral No observ ation record ed. MIGRATION. [address] [place] [address], [place], [address], 04/23/2022 06:20:53 02/07/20 22 02/04/2022 MAMMO , diagn ostic , digit al, unila teral No observ ation record ed. MIGRATION. [address] [place] [address], [place], [address], 04/23/2022 06:20:53 07/31/19 23 07/30/2022 colon oscop y scree la (PROC ) No observ ation record ed. [email or web address] Not Available 2022 16:06:18 08/22/19 23 07/30/2022 colon oscop y scree la (PROC ) No observ ation record ed. [place] [id number] Jamie Clements [address] [place] [address] Dr Maryam Lepe, [place], [address], 10/30/2022 16:06:19 11/07/19 23 11/05/2022 CT, abdom en + pelvi s, w/o contr ast No observ ation record ed. [address] , [place], [address], 02/24/2023 17:11:38 12/24/19 23 08/07/2022 MAMMO , scree la, digit al, bilat eral No observ ation record ed. [address] [address], [place], [address], 12/24/2022 00:40:22 12/26/19 23 12/16/2022 US, renal No observ ation record ed. [address] [address], [place], [address], 12/29/2022 17:14:15 03/04/19 24 03/02/2023 CT, brain , w/o contr ast No observ ation record ed. [address], [address], 03/04/2023 15:54:06 03/20/19 24 01/30/2023 DEXA No observ ation record ed. [address], [address], 03/20/2023 11:48:01 Result Notes None recorded. Problems Name Problem SNOMED Code Status Onset Date Resolution Date Notes Provider Name and Address Organization Details Recorded Time Benign essential hypertension 4129802 Active 2018 Not Available [facility] 3 06:14:30 Asthma 581316068 Active 2018 Not Available [facility] 3 06:14:31 Long-term drug therapy Active 2021 Not Available [facility] 3 06:14:31 Anemia 242083748 Active 2022 Not Available [facility] 3 06:14:31 Hypothyroidis m 62379785 Active 2020 Not Available [facility] 3 06:14:31 Hyperlipidemi a 64813049 Active 2018 Not Available [facility] 3 06:14:31 Chronic kidney disease 562092884 Active 2021 Not Available [facility] 3 06:14:31 Epigastric pain 11106747 Active 2021 Not Available [facility] 3 06:14:31 Impaired glucose tolerance 2580928 Active 2020 Not Available [facility] 3 06:14:31 Gout 15233393 Active 2022 JOSE Huggins [address], [address], [place], [address] , [facility] [facility] 3 13:29:23 Microscopic hematuria 647717639 Active 2022 JOSE Huggins [address], [address], [place], [address] , [facility] [employer] [facility] 3 16:01:13 Problem Notes None recorded. Procedures Surgical History Date Name Laterality Status Provider Name and Address Organization Details Recorded Time 07/30/19 19 cardiac catheterization completed Not Available [facility] 04/23/2022 06:09:31 05/25/19 19 Most Recent Bone Density completed Not Available [facility] 04/23/2022 06:09:25 01/24/20 18 Date of Last Colonoscopy completed Not Available [facility] 04/23/2022 06:09:25 Spinal Fusion completed Not Available [facility] 04/23/2022 06:09:31 ligation of bilateral fallopian tubes completed Not Available [facility] 04/23/2022 06:09:31 Imaging Results Imaging Date Name Status LastModified by Organization Details LastModified Time 02/04/2022 MAMMO, diagnostic, digital, unilateral completed [id number] [facility] [address], [place], [address], 04/23/2022 06:20:53 09/13/2020 RF, upper gastrointestinal tract, w/ contrast PO completed MIGRATION.[id number] [place] [address] (Imaging) [facility] [address], [place], [address], 04/23/2022 06:20:53 01/31/2021 upper endoscopy procedure (EGD) (PROC) completed [id number] Jamie Clements [address] [place] [address] Dr Francisco [address], [place], [address], 04/23/2022 06:20:53 09/03/2021 US, pelvis, complete completed MIGRATION.[id number] [address] [address] [facility] [address], [place], [address], 04/23/2022 06:20:53 08/02/2021 MAMMO, diagnostic, digital, unilateral completed MIGRATION.[id number] [place] [address] [address], [place], [address], 04/23/2022 06:20:53 07/30/2022 colonoscopy screening (PROC) completed [email or web address] Information not available 10/30/2022 16:06:18 07/30/2022 colonoscopy screening (PROC) completed [email or web address] Jamie Sam [facility] Dr Francisco B [address], [place], [address], 10/30/2022 16:06:19 11/05/2022 CT, abdomen + pelvis, w/o contrast completed [email or web address] [address] , [place], [address], 02/24/2023 17:11:38 08/07/2022 MAMMO, screening, digital, bilateral completed [email or web address] [address], [address], 12/24/2022 00:40:22 12/16/2022 US, renal completed [address] [address], [place], [address], 12/29/2022 17:14:15 03/02/2023 CT, brain, w/o contrast completed [address], [address], 03/04/2023 15:54:06 01/30/2023 DEXA completed [address] [address], [place], [address], 03/20/2023 11:48:01 Procedure Notes None recorded. Medical Equipment None Reported. Allergies Allergen ID Allergen Name Allergen Category Reaction Reaction Severity Criticality Documentation Date Start Date Code Code System Note Provider Name and Address Organization Details Recorded Time 61453 Product containin g penicilli n (product) medicatio n Not available Not available Not available 04/23/2022 01506 8001 SNOMED all cill ins Not Available [facility] 3 06:20:33 89747 Product containin g angiotens in-conver ting enzyme inhibitor (product) medicatio n Not available Not available Not available 04/23/2022 77758 009 SNOMED Not Available [facility] 3 06:20:33 Medications Name Sig Start Date Stop Date Status Note LastModified by Organization Details LastModified Time atorvastati n 40 mg tablet Take 1 tablet every day by oral route. 08/06 completed she has been out a long time. Not Available Not Available Not Available clindamycin HCl 300 mg capsule TAKE 1 CAPSULE BY MOUTH EVERY 8 HOURS FOR 7 DAYS 10/02 completed Not Available Not Available Not Available atorvastati n 10 mg tablet TAKE 1 TABLET AT BEDTIME active Not Available Not Available No t Available IBU 800 mg tablet 01/07 completed Not Available Not Available Not Available flurbiprofe n 0.03 % eye drops INSTILL 1 DROP INTO THE SURGICAL EYE THREE TIMES DAILY STARTING AFTER SURGERY active Not Available Not Available No t Available famotidine 40 mg tablet TAKE 1 TABLET BY MOUTH ONCE DAILY active Not Available Not Available No t Available allopurinol 100 mg tablet TAKE 1 TABLET DAILY active Not Available Not Available No t Available acetaminoph en 500 mg tablet Take 2 tablets every 8 hours by oral route as needed. 09/04 completed Not Available Not Available Not Available prednisolon e acetate 1 % eye drops,suspe nsion INSTILL 1 DROP ONCE DAILY AFTER SURGERY 04/02 completed Not Available Not Available Not Available levothyroxi ne 50 mcg tablet TAKE 1 TABLET EVERY MORNING active Not Available Not Available No t Available prednisone 50 mg tablet TAKE 1 TABLET BY MOUTH ONCE DAILY FOR 5 DAYS 10/28 completed Not Available Not Available Not Available polymyxin B sulfate 10,000 unit-trimet hoprim 1 mg/mL eye drops INSTILL 1 DROP 4 TIMES DAILY INTO THE SURGICAL EYE STARTING 1 DAY PRIOR TO SURGERY AND CONTINUE FOR 8 DAYS. 04/02 completed Not Available Not Available Not Available triamterene 37.5 mg-hydrochl orothiazide 25 mg tablet Take 1 tablet every day by oral route for 90 days. active Not Available Not Available No t Available hydrochloro thiazide 25 mg tablet TAKE 1 TABLET DAILY. DISCONTIN UE TRIAMTERE NE/ HYDROCHLO ROTHIAZID E active Not Available Not Available No t Available Tylenol 8 Hour 650 mg tablet,exte nded release Take 2 tablets every 8 hours by oral route. 01/07 completed Not Available Not Available Not Available metoprolol tartrate 25 mg tablet 08/06 completed Not Available Not Available Not Available magnesium 2021 active Not Available Not Available Not Avai lable calcium 2021 active Not Available Not Available Not Avai lable zinc 2021 active Not Available Not Available Not Avai lable Vitamin D 2021 active Not Available Not Available Not Avai lable ProAir HFA 90 mcg/actuati on aerosol inhaler Inhale 2 puffs every 4 hours by inhalatio n route as needed. 10/02 completed Not Available Not Available Not Available amlodipine 10 mg-olmesart an 40 mg tablet TAKE 1 TABLET DAILY active Not Available Not Available No t Available Caltrate 600 plus D takes daily 04/03 completed Not Available Not Available Not Available Vitals Date Recorded Body mass index (BMI) Body height Oxygen saturation Oxygen saturation in Arterial blood by Pulse oximetry Heart rate Body temperature Body weight Systolic blood pressure Diastolic blood pressure Provider Name and Address Organization Details Last Updated DateTime 1 42 kg/m2 162.56 cm 94 % 94 % 73.98 /min 97.4 [degF] 669385. 23 g 120 mm[Hg] 90 mm[Hg] Not Available [facility] 3 06:09:52 Date Recorded Body mass index (BMI) Body height Oxygen saturation Oxygen saturation in Arterial blood by Pulse oximetry Heart rate Respiratory rate Body temperature Body weight Systolic blood pressure Diastolic blood pressure Provider Name and Address Organization Details Last Updated DateTime 2 40.6 kg/m2 162.56 cm 95 % 95 % 80 /min 16 /min 97.6 [degF] 550077. 24 g 140 mm[Hg] 90 mm[Hg] Not Available [facility] 3 06:09:52 Date Recorded Body mass index (BMI) Body height Oxygen saturation Oxygen saturation in Arterial blood by Pulse oximetry Heart rate Body temperature Body weight Systolic blood pressure Diastolic blood pressure Provider Name and Address Organization Details Last Updated DateTime 2 40.6 kg/m2 162.56 cm 98 % 98 % 62 /min 97.7 [degF] 704844. 67 g 130 mm[Hg] 74 mm[Hg] Not Available [facility] 3 06:09:52 Date Recorded Body mass index (BMI) Body height Oxygen saturation Oxygen saturation in Arterial blood by Pulse oximetry Heart rate Respiratory rate Body temperature Body weight Systolic blood pressure Diastolic blood pressure Provider Name and Address Organization Details Last Updated DateTime 3 41 kg/m2 162.56 cm 94 % 94 % 100 /min 16 /min 97.8 [degF] 042360. 58 g 128 mm[Hg] 80 mm[Hg] Not Available [facility] 3 06:09:52 Date Recorded Body height Body temperature Body mass index (BMI) Body weight Respiratory rate Oxygen saturation Oxygen saturation in Arterial blood by Pulse oximetry Heart rate Provider Name and Address Organization Details Last Updated DateTime 3 162.56 cm 96.3 [degF] 39.3 kg/m2 999585. 65 g 16 /min 97 % 97 % 111 /min DUANE Romero - [facility] 15:35:08 Date Recorded Systolic blood pressure Diastolic blood pressure Provider Name and Address Organization Details Last Updated DateTime 10/29/2022 118 mm[Hg] 80 mm[Hg] JOSE Huggins [address], [facility] [address], [place], [address], [place] [facility] 10/30/2022 16:09:55 Social History Question Answer Notes LastModified by Organizat ion Details LastModified Time Tobacco Smoking Status Former Smoker Not Available [facility] 04/23/2022 06:06:51 Do You Have An Advance Directive? No [id number].[id number] Information not available 04/23/2022 What Is Your Level Of Alcohol Consumption? Occasional MIGRATION.[id number] 5557 Information not available 04/23/2022 What Is Your Level Of Caffeine Consumption? Moderate MIGRATION.717686 9083 Information not available 04/23/2022 In The 14 Days Before Symptom Onset, Have You Had Close Contact With A Laboratory-confir med COVID-19 While That Case Was Ill? No MIGRATION.[id number] 0091 Information not available 04/23/2022 In The 14 Days Before Symptom Onset, Have You Had Close Contact With A Person Who Is Under Investigation For COVID-19 While That Person Was Ill? No MIGRATION.[id number] 7831 Information not available 04/23/2022 What Type Of Diet Are You Following? REGULAR MIGRATION.418274 4025 Information not available 04/23/2022 Have There Been Any Changes To Your Family Or Social Situation? No MIGRATION.819099 5232 Information not available 04/23/2022 When Did You Quit Smoking? 15+yearssincel curtis 1989 MIGRATION.407642 8048 Information not available 04/23/2022 Do You Use Insect Repellent Routinely? No MIGRATION.439635 8767 Information not available 04/23/2022 Do You Have A Medical Power Of [place] [employer]? No MIGRATION.207960 7455 Information not available 04/23/2022 What Was The Date Of Your Most Recent Tobacco Screening? 10/02/2021 MIGRATION.[id number] 7293 Information not available 04/23/2022 What Is Your Relationship Status? MIGRATION.916389 4425 Information not available 04/23/2022 Do You Use Your Seat Belt Or Car Seat Routinely? Yes MIGRATION.384993 5281 Information not available 04/23/2022 Do You Have Smoke And Carbon Monoxide Detectors In Your Home? Yes MIGRATION.453176 1002 Information not available 04/23/2022 At What Age Did You Start Smoking Tobacco? 17 MIGRATION.478615 6731 Information not available 04/23/2022 Do You Use Any Illicit Or Recreational Drugs? No MIGRATION.432945 3002 Information not available 04/23/2022 Do You Use Sunscreen Routinely? Yes MIGRATION.637936 0382 Information not available 04/23/2022 How Many Years Have You Smoked Tobacco? 15 MIGRATION.246784 2646 Information not available 04/23/2022 Have You Recently Traveled Abroad? No MIGRATION.375229 3575 Information not available 04/23/2022 Do You Have Any Dietary Restrictions? No MIGRATION.157284 6634 Information not available 04/23/2022 Do You Or Have You Ever Used Any Other Forms Of Tobacco Or Nicotine? No MIGRATION.242020 9230 Information not available 04/23/2022 Sex: Unknown Functional Status Question Answer Note LastModified by Organizat ion Details LastModified Time Do you have difficulty walking or climbing stairs? No MIGRATION.[id number] 026 Information not available 04/23/2022 Do you have transportation difficulties? No MIGRATION.2275441 026 Information not available 04/23/2022 Are you able to walk? YESWOREST MIGRATION.5080193 026 Information not available 04/23/2022 Do you have difficulty doing errands alone? No MIGRATION.7445660 026 Information not available 04/23/2022 Are you able to care for yourself? Yes MIGRATION.0796626 026 Information not available 04/23/2022 Do you have difficulty dressing or bathing? No MIGRATION.6127286 026 Information not available 04/23/2022 What is your exercise level? None MIGRATION.[id number] 026 Information not available 04/23/2022 Mental Status None recorded. Family History Relationship Description Onset Age of this Age Resolved Age Notes LastModified by Organization Details LastModified Time Son Diabetes mellitus [id number].009 [id number] Not available 04/23/2022 06:09:32 Mother Diabetes mellitus MIGRATION.106 [id number] Not available 04/23/2022 06:09:32 Father Malignant neoplasm of lung MIGRATION.212 [id number] Not available 04/23/2022 06:09:32 Sister Malignant neoplasm of lung MIGRATION.232 [id number] Not available 04/23/2022 06:09:32 Medical History Condition Response HYPERTENSION Y HIGH CHOLESTEROL / HYPERLIPIDEMIA Y ASTHMA Y Gynecological History Statement/Question Response Date of Last Pap 05/24/2018 Date of Last Mammogram 07/02/2020 Date of Last Colonoscopy 01/23/2018 Most Recent Bone Density 05/24/2018 Obstetrics History GPAL:G 0 P 0 0 0 0 Past Encounters Encounter ID Performer Location Encounter Start Date Encounter Closed Date Diagnosis/Indication Diagnosis SNOMED-CT Code Diagnosis ICD10 Code Diagnosis Note [id number] JOSE Huggins [facility] [address] [place] [address] 05/08/2020 00:00:00 05/08/2020 15:37:27 [id number] JOSE Huggins [facility] [address] [place] [address] 09/04/2020 00:00:00 09/21/2020 09:11:01 [id number] JOSE Huggins [facility] [address] [place] [address] 04/03/2021 00:00:00 04/22/2021 18:20:50 [id number] Corby Carroll [facility] [address] [place] [address] 10/02/2021 00:00:00 10/22/2021 20:53:51 [id number] JOSE Huggins [facility] [address] [place] [address] 04/09/2022 00:00:00 04/15/2022 13:48:27 [id number] JOSE Huggins [facility] [address] [place] [address] 10/29/2022 15:29:49 10/29/2022 16:30:40 Chronic kidney disease 525624286 N18.9 Last 12 months creatinine has escalated: 1.48 to 1.75 to current 2.13. refer to Nephrology for establishm ent. Microscopic hematuria 19 4641342 R31.29 microscopi c RBCs now noted on Urinalysis . refer for CT urogram without only: Benign ess ential hypertension 5145174 I10 BP is currently stable on amlodipine 10mg/olmes geoffrey 40mg daily, and HCTZ 25mg daily. the diuretic may get discontinu ed pending f/u testing. Hyperlipidemia 25096786 E78.5 stable on statin therapy. repeat labs in mar. Hypothyroidism 01511065 E03.9 stable on thyroid supplement . repeat labs in Mar. Impaired g lucose tolerance 0836464 R73.03 5.8% a1c very stable. Asthma 277979514 J45.90 9 stable , no acute concerns or symptoms. Anemia 179902848 D64.9 has completed GI workup and stable CBC and iron studies. following labs. Long-term drug therapy 434204903 Z79.899 Health Concerns Section Related Observation LastModified by Organization Detai ls LastModified Time None Recorded Concern Status LastModified by Organization Details LastModified Time None Recorded Advance Directives Directive N: Payers Encounter Date Sequence Insurance Name Policy Number Policy Sprague Covered Member ID Sprague Member ID Guarantor Name 10/29/2022 1 [employer] (PPO) [id number] Jolie Montelongo [id number] Jolie Montelongo Notes Date Note Type Note Provider Name and Address Organization Details Recorded Time 021 text/ht ml HyperlipidemiaReported bypatient.Control:usually well controlled; improving; at goal Compliance:compliant; compliant with diet; exercises Complications:no coronary artery disease; no peripheral artery disease; no cardiovascular diseaseHypertensionReported bypatient.Onset/Timing:better Self Care:not under emotional stress Associated Symptoms:no shortness of breath; no fatigue; no palpitations; no decline in exercise capacity; no snoringHypothyroidReported bypatient.Associated Symptoms:no weakness; no lightheadedness; no fatigue; no cold intolerance; no constipation; no weight gain; no involuntary weight loss; normal mood; no menstrual irregularity; no pain; no dry/coarse skin; no edema; no deepening of the voice; no hoarseness; no goiter; no mass detected; no chest pain; no palpitations Treatment:taking medication as directed Not Available [facility] 09/21/2020 09:11:01 022 text/ht ml Asthma F/UReported bypatient.Quality:well-controlled with antiasthmatics Severity:able to sleep during episode; does not interfere with daily activities Onset/Timing:chronic Status:same Associated Symptoms:no fever; no fatigue; no irritability; no cough; normal appetite; no changes in productivity; no shortness of breath Antiasthmatics:compliant with maintenance asthma medication; no prior adverse reaction(s)HyperlipidemiaReported bypatient.Duration:chronic Control:usually well controlled Current Therapy:currently taking: (atorvastatin 10mg) Compliance:compliant; exercises;noncompliant with diet Complications:no coronary artery disease; no peripheral artery disease; no cardiovascular disease Risk Factors:hypertensionHypertensionR eported bypatient.Duration:has noted for years Onset/Timing:better Alleviating Factors:medication Self Care:not under emotional stress Associated Symptoms:no shortness of breath; no fatigue; no palpitations; no decline in exercise capacity; no snoringHypothyroidismReported bypatient.Duration:constant Onset/Timing:still present Context/Risk:normal thyroid levels; no history of head or neck radiation during childhood; no history of thyroid disease; no history of hyperthyroidism; no excess iron exposure;history of hypothyroidism;female gender Modifying Factors:medication Exerciseno exercise(but active) Associated Symptoms:no cold intolerance; no heat intolerance; no weight loss; no weight gain; no double vision; no dry eyes; no hoarseness; no difficulty swallowing; no neck masses; no deepening of the voice; no fast heart rate; no increased blood pressure; no palpitations; no chest pain; no chest tightess or pressure; no constipation; no diarrhea; no vomiting; no decreased appetite; no loose stools; no irregular menstrual periods; no excessive sweating; no joint pain; no numbness; no tingling of the hands or feet; no dry skin; no tremor; no nervousness; no anxiety; no depression; no fatigue; no sleep difficulties; no skin changes; no hair changes Not Available [facility] 04/22/2021 18:20:50 022 text/ht ml Asthma F/UReported bypatient.Quality:well-controlled with antiasthmatics;wheezing Severity:not able to sleep during episode;symptoms cause awakening from sleep Status:same Modifying Factors:changes in weather;illness Associated Symptoms:coughHyperlipidemiaRepor sherman bypatient.Duration:chronic Control:usually well controlled Compliance:does not exerciseHypertensionReported bypatient.Onset/Timing:better Alleviating Factors:medication Self Care:not under emotional stress Associated Symptoms:no shortness of breath; no fatigue; no palpitations; no decline in exercise capacity; no snoring;muscle weaknessHypothyroidismReported bypatient.Onset/Timing:better Context/Risk:normal thyroid levels;history of hyperthyroidism;female gender Exerciseno exercise Associated Symptoms:no cold intolerance; no heat intolerance; no weight loss; no weight gain; no double vision; no dry eyes; no hoarseness; no difficulty swallowing; no neck masses; no deepening of the voice; no fast heart rate; no increased blood pressure; no palpitations; no chest pain; no chest tightess or pressure; no constipation; no diarrhea; no vomiting; no decreased appetite; no loose stools; no irregular menstrual periods; no excessive sweating; no numbness; no tingling of the hands or feet; no dry skin; no tremor; no nervousness; no anxiety; no depression; no fatigue; no sleep difficulties; no skin changes; no hair changes;joint pain Not Available [facility] 10/22/2021 20:53:51 023 text/ht ml HyperlipidemiaReported bypatient.Duration:chronic Control:usually well controlled Current Therapy:currently taking: (atorvastatin 10mg) Compliance:compliant;noncompliant with diet;does not exercise Complications:no coronary artery disease; no peripheral artery disease; no cardiovascular disease Risk Factors:hypertensionHypertensionR eported bypatient.Duration:has noted for years Onset/Timing:better Alleviating Factors:medication Self Care:not under emotional stress Associated Symptoms:no shortness of breath; no fatigue; no palpitations; no decline in exercise capacity; no snoringHypothyroidismReported bypatient.Quality:not changing Duration:constant Onset/Timing:still present Context/Risk:normal thyroid levels; no history of head or neck radiation during childhood; no history of thyroid disease; no history of hyperthyroidism; no excess iron exposure;history of hypothyroidism;female gender Modifying Factors:medication Exerciseno exercise Associated Symptoms:no cold intolerance; no heat intolerance; no weight loss; no weight gain; no double vision; no dry eyes; no hoarseness; no difficulty swallowing; no neck masses; no deepening of the voice; no fast heart rate; no increased blood pressure; no palpitations; no chest pain; no chest tightess or pressure; no constipation; no diarrhea; no vomiting; no decreased appetite; no loose stools; no irregular menstrual periods; no excessive sweating; no joint pain; no numbness; no tingling of the hands or feet; no dry skin; no tremor; no nervousness; no anxiety; no depression; no fatigue; no sleep difficulties; no skin changes; no hair changes Not Available [facility] 04/15/2022 13:48:27 023 text/ht ml HyperlipidemiaReported bypatient.Duration:chronic Control:usually well controlled Compliance:compliant; compliant with diet;does not exercise Complications:no coronary artery disease; no peripheral artery disease; no cardiovascular disease Risk Factors:hypertensionHypertensionR eported bypatient.Duration:has noted for years Onset/Timing:better Alleviating Factors:medication Associated Symptoms:no shortness of breath; no fatigue; no palpitations; no decline in exercise capacity; no snoringHypothyroidismReported bypatient.Quality:not changing Duration:constant Onset/Timing:still present Context/Risk:normal thyroid levels; no history of head or neck radiation during childhood; no history of thyroid disease; no history of hypothyroidism; no history of hyperthyroidism; no excess iron exposure Modifying Factors:medication Exerciseno exercise Associated Symptoms:no cold intolerance; no heat intolerance; no weight loss; no weight gain; no double vision; no dry eyes; no hoarseness; no difficulty swallowing; no neck masses; no deepening of the voice; no fast heart rate; no increased blood pressure; no palpitations; no chest pain; no chest tightess or pressure; no constipation; no diarrhea; no vomiting; no decreased appetite; no loose stools; no irregular menstrual periods; no excessive sweating; no joint pain; no numbness; no tingling of the hands or feet; no dry skin; no tremor; no nervousness; no anxiety; no depression; no fatigue; no sleep difficulties; no skin changes; no hair changes JOSE Huggins [address] [facility], [facility] [address], [place], [address], [facility] 10/30/2022 16:14:39 OBGyn Episode No OBEpisode recorded.
--- OUTSIDE RECORDS SUMMARY | 2024-06-25 16:08 | XMS_ITS | Clinical Summary ---
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 Her son was in his early 40s she has a daughter who is approximately 2 years old was doing well in good health. He had a chronic illness of approximately 4- 5 years. 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 He was admitted to [facility] where he had been managed for his [...] 07/2016 Assessment & Plan (12/29/2016 6:19 PM PROMOTIONS REPRESENTATIVE): Patient has been coughing up green sputum, [...] appointment. Assessment & Plan (04/01/2017 7:00 PM PROMOTIONS REPRESENTATIVE): Hypertension is unchanged. Continue current treatment regimen. [...] episodes. Assessment & Plan (04/01/2017 7:01 PM PROMOTIONS REPRESENTATIVE): Patient is asymptomatic at this time regarding gout she has had several attacks in the past. Her last uric acid level was acceptable. Assessment & Plan (11/24/2016 5:47 PM CDT): Patient has not had a gout attack for at least 2 years. Encounters Date Type Department Care Team Description 05/19/2024 11:30 AM CDT Office Visit [facility] Sports Medicine and Primary Care at [address] [place] [address] Corby Lugo DO Primary osteoarthritis of right knee (Primary Dx) 05/09/2024 Documentation [facility] Sports Medicine and Primary Care at [address] [place] [address] Cathryn Carlos MA 05/06/2024 10:15 AM CDT Ancillary Procedure [facility] Imaging at [address] [address] Right knee pain, unspecified chronicity 05/06/2024 10:00 AM CDT Office Visit [facility] Sports Medicine and Primary Care at [address] [place] [address] Corby Lugo DO Right knee pain, unspecified chronicity (Primary Dx); Primary osteoarthritis of right knee 05/06/2024 Telephone [facility] Orthopedics and Sports Medicine [address] [facility] [address], [place] [phone] Corby Lugo DO from Last 3 Months Surgical History Surgery Date Site/Laterality Comments OTHER SURGICAL HISTORY GI Bypass TUBAL LIGATION COLONOSCOPY 07/24/2014 - 08/22/2014 SPINAL FUSION 2001 and 2005 2 fusions LAPAROSCOPIC GASTRIC BANDING 06/23/2009 - 07/23/2009 LAPAROSCOPIC GASTRIC BANDING 02/24/2012 - 02/22/2013 removed at this time CATARACT EXTRACTION, BILATERAL 03/26/2020 - 04/22/2020 COLONOSCOPY 07/24/2017 - 08/22/2017 Medical History Medical History Date Comments Colon polyp Family History Medical History Relation Name Comments Diabetes Mother Hypertension Mother Kidney failure Mother Relation Name Status Comments Mother Social History Tobacco Use Types Packs/Day Years [...] on file Legal Sex Female 1:25 PM PROMOTIONS REPRESENTATIVE Gender Identity Not on file Sexual Orientation Not on file Obstetrics History Last Filed Vital Signs Vital Sign Reading [...] 05/06/2024 10:15 AM CDT Plan of Treatment Health Maintenance Due Date Last Done Comments Breast Cancer Screening-Mammogram 1955 Hepatitis C Screening 1955 Osteoporosis Screening-Bone Density Scan 1955 DTaP/Tdap/Td Vaccine (1 - Tdap) 1965 Hepatitis B Screening 1972 Pneumococcal vaccine 65+ (1 of 2 - PCV) 1973 Zoster Vaccine (1 of 2) 2004 Depression Screening 08/31/2018 08/31/2017 Well Visit 65+ 07/20/2019 Fall Risk Assessment 01/15/2022 01/15/2021, 09/01/19 18 Covid-19 Vaccine (4 - 2023-2 5 season) 2023 12/13/2020, 05/11/2020, 04/20/2020 Influenza Vaccine (Season Ended) 2024 Colon Cancer Screening-Colonoscopy 07/30/2032 07/30/2022, 08/04/2017, 06/28/2014, Additional history exists Colon Cancer Screening-CT Colonography Discontinued 07/30/2022, 08/04/2017, 06/28/2014, Additional history exists Colon Cancer Screening-DNA Stool Discontinued 07/30/2022, 08/04/2017, 06/28/2014, Additional history exists Colon Cancer Screening-FIT Discontinued 07/30, 08/04/2017, 06/28/2014, Additional history exists Colon Cancer Screening-Sigmoidoscopy Discontinued 07/30/2022, 08/04/2017, 06/28/2014, Additional history exists Procedures Procedure Name Priority Date/Time Associated Diagnosis Comments MN ARTHROCENTESIS ASPIR&/INJ MAJOR JT/BURSA W/US Routine 05/19/2024 11:30 AM CDT Primary osteoarthritis of right knee XR KNEE RIGHT 4 OR MORE VIEWS Schedule Routine, Read Routine (OP Routine) 05/06/2024 10:09 AM CDT Right knee pain, unspecified chronicity COLONOSCOPY 07/30/2022 11:50 AM CDT from Last 3 Months or Most Recently Relevant to Health Maintenance Results * MN ARTHROCENTESIS ASPIR&/INJ MAJOR JT/BURSA W/US (05/19/2024 11:30 [...] guided right knee injection Patient name: Jolie Montelongo Performing physician: Corby Lugo DO, ARUN, CAQSM Reason for procedure: Right knee osteoarthritis [...] mg hyaluronate sodium, stabilized 60 mg/3 mL Corby Lugo DO IN CLINIC/BEDSIDE JENNIFER LEAL [...] comparison. No acute fracture. Alignment is normal. Rnno-lo-ljdvuxtf patellofemoral predominant tricompartmental right knee osteoarthritis. Moderate-sized knee effusion is present. IMPRESSION: Gznz-vy-amuyixhn patellofemoral predominant tricompartmental right knee osteoarthritis. Moderate-sized right knee effusion. THIS IS AN ELECTRONICALLY VERIFIED FINAL REPORT 05/12/2024 12:23 PM - Electronically signed by Corby Gaona M.D. T: Report ID: [id number] Reading Location: [id number] Procedure Note Corby Gaona MD - 05/12/2024 EXAM DESCRIPTION: XR KNEE RIGHT 4 OR MORE VIEWS REASON FOR STUDY: Pain Pt complains of posterior right knee pain x 2 months. No prior surgery or injury FINDINGS: Four views submitted without comparison. No acute fracture. Alignment is normal. Saou-qu-uuufzayi patellofemoral predominant tricompartmental right knee osteoarthritis. Moderate-sizedknee effusion is present. IMPRESSION: Syxu-ch-czqadtat patellofemoral predominant tricompartmental right knee osteoarthritis. Moderate-sized right knee effusion. THIS IS AN ELECTRONICALLY VERIFIED FINAL REPORT 05/12/2024 12:23 PM - Electronically signed by Corby Gaona M.D. T: Report ID: [id number] Reading Location: [place] [address] Corby Lugo DO IMG XR PROCEDURES Shari l Result * COLONOSCOPY (07/30/2022 11:50 AM CDT) Anatomical Region Laterality Modality Other Narrative Procedure Note Jamie Clements MD - 07/30/2022 11:50 AM CDT [facility] Patient Name: Jolie Montelongo Procedure Date: 07/30/2022 11:50 AM Date of : 1955 Admit Type: Outpatient Age: 67 Gender: Female Attending MD: Jamie Clements M.D. Room: [facility] ENDOSCOPY ROOM 1 Note Status: Finalized Patient [...] polyps, Last colonoscopy: July 2017 Referring MD: Lexii Mason, PAAdanC Providers: Jamie Clements M.D. Impression: - Diverticulosis [...] under direct vision. The Pediatric Colonoscope PCF-H190L [id number] was introducedthrough the anus and advanced to [...] 11:50 AM Procedure Code(s): --- Professional --- 19553, Colonoscopy, flexible; with removal of tumor(s), polyp(s), or other lesion(s) by snare technique 44001, Colonoscopy, flexible; with directed submucosal injection(s),any substance Diagnosis Code(s): --- Professional --- Z86.010, Personal history of colonic polyps K64.8, Other hemorrhoids D12.3, Benign neoplasm of transverse colon (hepatic flexure orsplenic flexure) K57.30, Diverticulosis of large intestine without perforation orabscess without bleeding CPT copyright 2020 [employer]. All rights reserved. The codes documented in this report are preliminary and upon lamp stack developer reviewmay be revised to meet current compliance requirements. Recognized by the [employer] for promoting quality in endoscopy Jamie Clements MD ENDOSCOPY PROCEDURES Final Result from Last 3 Months or Most Recently Relevant to Health Maintenance Insurance AETNA MEDICARE AETNA MEDICARE AETNA MEDICARE AETNA MEDICARE Advance Directives For more information, please contact: [phone] * Full Code (Latest Code Status on [...] 9:21 AM 08/04/2017 1:43 PM Care Teams Maintenance Mechanic 2Nd Shift Relationship Specialty Start Date End Date Lexii Mason PA PCP - General Physician Taxi Driver Supervisor 07/30/22
--- OUTSIDE RECORDS SUMMARY | 2024-06-25 16:08 | XMS_ITS | CONTINUITY OF CARE DOCUMENT ---
Author Name mary, kamronimelda Address Unknown Organization [facility] Address [address] [facility] [address] [place] [address] Phone [phone] Care Team Providers Care Blast Furnace Blower Name Role Phone Vishal Barbosa MD Unavailable [phone] CHANCE CROWE Unavailable CHANCE CROWE Unavailable [phone] PROBLEMS Condition Status Date Provider Notes Gout active Jarett Keating Aortic regurgitation - 08/12 19 ECHO moderate/severe active Vishal Barbosa MD Asthma active Jarett Keating Obesity active Vishal Barbosa MD Abnormal nuclear stress test - no CAD on cath 07/2018 active Vishal Barbosa MD Dyslipidemia active Vishal Barbosa MD Hypertension active Vishal Barbosa MD Tachycardia active Vishal Barbosa MD Shortness of breath active Vishal Barbosa MD ENCOUNTERS Date Type Provider Location Encounter Diag nosis 09/20 - 09/20 In-person encounter Office Visit Vishal Barbosa MD [facility] Abnormal nuclear stress test - no CAD on cath 07/2018Aortic regurgitation - 07/2018 ECHO moderate/severeGout 07/28 - 07/28 In-person encounter Office Visit Vishal Barbosa MD [facility] Shortness of breathTachycardiaHypertensionDyslipidemiaAbnormal nuclear stress test - no CAD on cath 07/2018ObesityAsthma VITAL SIGNS Date Observation Value Provider Body Mass Index (Ratio) 41.36 kg/m2 Song salas Zuri blood pressure, resting Yes Vishal Barbosa MD blood pressure, cuff size regular Cy hema Godinez blood pressure, diastolic 70 mm[Hg] Anil Godinez blood pressure, systolic 130 mm[Hg] Irene Godinez oxygen saturation, oximetry 98 % Susie Godinez respiratory rate E&M 16 /min Susienallely Godinez pulse rate 77 /min Susie buckley weight E&M 241 [lb_av] Susie Lay l height E&M 64 [in_i] Susie Lay l Body Mass Index (Ratio) 41.53 kg/m2 Vishal Barbosa MD blood pressure, cuff size regular Anil Godinez blood pressure, diastolic 80 mm[Hg] Anil Godinez blood pressure, systolic 122 mm[Hg] Irene Godinez oxygen saturation, oximetry 96 % Susie Godinez respiratory rate E&M 18 /min Susie Godinez pulse rate 115 /min Susie buckley weight E&M 242 [lb_av] Susie Lay l height E&M 64 [in_i] Susie buckley ALLERGIES Allergy Name Onset Date Reaction Criticality Status EDMUNDO INHIBITORS Angioedema Angioedema High Criti cality active PENICILLIN V POTASSIUM Low Criticali ty active RESULTS Date Observation Value Provider Reference Range Interpretation Location 6 LDL cholesterol, serum 149 mg/dL Jarett Zuri 6 basophil count, absolute 0.0 x10E3/uL [facility] 0.0-0.2 6 Eosinophil Absolute Count 0.2 X10E3/UL [facility] 0.0-0.4 6 monocyte count, blood, automated 0.4 X10E3/UL [facility] 0.1-0.9 6 lymphocyte count, blood, automated 2.2 X10E3/UL [facility] 0.7-3.1 6 Absolute Neutrophils 7.4 X10E3/UL [facility] 1.4-7.0 High 6 basophils as percent of blood leukocytes 0 % [facility] Not Estab. 6 eosinophils as percent of blood leukocytes 2 % [facility] Not Estab. 6 monocytes as percent of blood leukocytes 4 % [facility] Not Estab. 6 lymphocytes as percent of blood leukocytes 21 % [facility] Not Estab. 6 neutrophils as percent of blood leukocytes 73 % [facility] Not Estab. 6 platelet count 357 X10E3/UL [facility] [id number] 1699/06/0 6 red blood cell distribution width 16.3 % [facility] 12.3-15.4 High 6 mean corpuscular hemoglobin concentration, RBC 30.7 G/DL [facility] 31.5-35.7 Low 6 mean corpuscular hemoglobin, RBC 27.0 pg [facility] 26.6-33.0 6 mean corpuscular volume, RBC 88 fL [facility] 79-97 6 hematocrit, blood 38.1 % [facility] 34.0-46.6 6 hemoglobin, blood 11.7 g/dL [facility] 11.1-15.9 6 erythrocyte (RBC) count 4.34 X10E6/UL [facility] 3.77-5.28 6 leukocyte count, blood 10.2 X10E3/UL [facility] 3.4-10.8 6 prothrombin time (patient) 11.0 s [facility] 9.1-12.0 6 international normalized ratio (INR) 1.0 [facility] 0.8-1.2 6 lipoprotein, beta, serum, point, quantitative, calculated 149 mg/dL [facility] 0-99 High 6 very low density lipoproteins 23 mg/dL [facility] 5-40 6 HDL cholesterol, serum 65 mg/dL [facility] >39 6 triglyceride, serum, random 113 mg/dL [facility] 0-149 6 cholesterol, serum 237 mg/dL [facility] 100-199 High HISTORY OF MEDICATION USE Medication Status Instructions Dates Provider Indications Com ments ALLOPURINOL 100 MG ORAL TABLET active take 1 tab daily 9 Susie Godinez ASPIRIN ADULT LOW DOSE 81 MG ORAL TABLET DELAYED RELEASE active One Tab By Mouth Daily 5 Vishal Brabosa MD METOPROLOL TARTRATE 25 MG ORAL TABLET completed one tab. twice daily 5 - 9 Susie Godinez TRIAMTERENE-HCTZ 37.5-25 MG ORAL TABLET active TAke 1 tablet daily 5 Susie Godinez PROAIR HFA 108 (90 BASE) MCG/ACT INHALATION AEROSOL SOLUTION active Inhale 2 puffs every 4 hours as needed 5 Susie Godinez IBUPROFEN 800 MG ORAL TABLET completed As needed 5 - 9 Susie Godinez ATORVASTATIN CALCIUM 40 MG ORAL TABLET active TAke 1 tablet daily 5 Susie Godinez AMLODIPINE-OLMESA RTAN 10-40 MG ORAL TABLET active Take 1 tablet once daily 5 Susie Godinez SOCIAL HISTORY Date Observation Value Provider social history reviewed E&M revi ewed - no changes required Vishal Barbosa MD smoking, year quit 1989 Susie phillips smoking history, tot al pack/day 1 Susie Godienz cigarette use yes Susie morrow smoking status Former smoker Susie degroot social history reviewed E&M revi ewed - no changes required Jarett Keating social history E&M Smoking Histo ry: P tari is a former smoker. Jarett Keating smoking, year quit 1989 Susie phillips smoking history, tot al pack/day 1 Jarett Keating cigarette use yes Susie morrow smoking status Former smoker Susie degroot FAMILY HISTORY Family Member Condition Full Sister Family History of Hetal ng Cancer: Father Family History of Hetal ng Cancer: Son Family History of Di abetes: Son Family History of CV A or Stroke: Mother Family History of Di abetes: INSURANCE PROVIDERS Payer name Policy type / Coverage type Donte red democrat ID AETNA MEDICARE Commercial insurance [employer] Tessa [id number] ADVANCE DIRECTIVES Name Date DISCUSSED - NO DECISION MADE TREATMENT PLAN Date Name Performer [facility] follow up :CHOL: 237 (07/29/2018) HDL: 65 (07/29/2018) LDL: 149 (07/29/2018) TRI (07/29/2018) Her updated medication list for this problem includes: Atorvastatin Calcium 40 Mg Oral Tablet (Atorvastatin calcium) ..... Take 1 tablet daily [facility] follow up :EKG today shows HR of 63 BPM. R lyndseywemello telesentry results: R hythm: Sinus Rhythm with occasional Ventricular ectopics and rare Supraventricular ectopics. T he average heart rate was 86bpm with a maximum heart rate of 127bpm. T he minimum heart rate was 48bpm. V entricular ectopics were documented in the form of isolated beats. S upraventricular ectopics were documented in the form of isolated beats. [facility] follow up :BP today: 130/70 P rior BP: 122/80 (07/28/2018) The following medications were removed from the medication list: Metoprolol Tartrate 25 Mg Oral Tablet (Metoprolol tartrate) ..... One tab. twice daily Her updated medication list for this problem includes: Triamterene-hctz 37.5-25 Mg Oral Tablet (Triamterene-hctz) ..... Take 1 tablet daily Amlodipine-olmesartan 10-40 Mg Oral Tablet (Amlodipine-olmesartan) ..... Take 1 tablet once daily [facility] follow up :Cardiac cath showed normal coronary arteries. [facility] follow up :Cardiac cath showed normal coronary arteries and normal EF. Echo showed ekwcbqdj-fh-brblic aortic regurgitation. She continues to be short of breath with minimal exertion. We will ask Dr. Colon to review her records. [facility] follow up :Cardiac cath showed normal coronary arteries and normal EF. PFT's showed mild restriction. Echo showed zprnzslg-bl-gczemb aortic regurgitation. She continues to be short of breath with minimal exertion. We will ask Dr. Colon to review her records. [facility] nt:Regadenosine myoview today shows a moderate to large size, moderate severity, partially reversible inferolateral wall defect consistent with ischemia, and she became tachycardic after administration of regadenosine. Will start Metoprolol 25mg BID. [facility] [place] nt:Her updated medication list for this problem includes: Atorvastatin Calcium 40 Mg Oral Tablet (Atorvastatin calcium) ..... Take 1 tablet daily Orders: L IPID PANEL (2806) [facility] nt:Regadenosine myoview today shows a moderate to large size, moderate severity, partially reversible inferolateral wall defect consistent with ischemia, and she became tachycardic after administration of regadenosine. She is symptomatic with ODELL. Will schedule cardiac cath. [facility] nt:Pt has SOB with minimal exertion and she was referred for a regadenosine myoview scan. Regadenosine myoview today shows a moderate to large size, moderate severity, partially reversible inferolateral wall defect consistent with ischemia, and she became tachycardic after administration of regadenosine. She denies prior cardiac hx. She has risk factors including HTN and dyslipidemia. Will start baby ASA and Metoprolol 25mg BID and schedule cardiac cath. Jarett [place] Date Name PROTHROMBIN TIME WIT H INR LIPID PANEL CBC (INCLUDES DIFF/P LT) Cardiac Cath - Left - [facility] HISTORY OF PROCEDURES Procedure Date Procedure Name Provider Procedure Notes S tatus EKG Vishal Barbosa MD completed Mobile Cardiac Telem etry - Tech Vishal Barbosa MD completed Mobile Cardiac Telem etry - Prof Vishal Barbosa MD completed FVC / MVV with [facility] hodilator - [address]0538 Vishal Barbosa MD completed BLOOD COUNT HEMOGLOBIN Vishal Barbosa MD completed [facility] - 71716 Vishal Barbosa MD completed SpO2 w/o 6min walk/titration Vishal Barbosa MD completed [facility]CO - 02355 Vishal Barbosa MD complete d Regadenoson, 4 units Vishal Barbosa MD completed Cardiolite, 2 units Vishal Barbosa MD c ompleted SPECT Images Vishal Barbosa MD complete d Stress EKG Vishal Barbosa MD completed
== END 2024-06-25 09:40 | disposition home or self-care (01) ==
LOC: ANHIMG 09:40
PROVIDERS: PCP Physician Assistant; Visit Provider Obstetrics & Gynecology
DX: Z12.31 Encounter for screening mammogram for malignant neoplasm of breast (principal)
CPT/HCPCS: 77063; 77067

== ENCOUNTER 2024-09-28 07:27 | Outpatient (CLI) | payer MEDICARE, SELFPAY ==
--- OUTSIDE RECORDS SUMMARY | 2024-09-28 07:30 | XMS_ITS | Referral Summary ---
Author Organization [facility] [address] [place] [address] Phone Care Team Providers Care Manager Lean Name Role Phone Lexii Mason Primary Care Pr ovider Encounters Date Type Department Care Team Description 09/13/2024 Telephone [facility] Orthopedics and Sports Medicine [address] [place] [address] Corby Lugo DO Scheduling Appointments 07/11/2024 10:55 AM CDT Ancillary Procedure [facility] Imaging at [address] [phone] Acute pain of right knee 07/11/2024 10:45 AM CDT Office Visit [facility] Convenient Care at [address] [address] Simona Gray PA Chronic pain of right knee (Primary Dx) from Last 3 Months Allergies Active Allergy [...] Active Additional Information Patient not taking.Reported on 07/11/2024 atorvastatin (LIPITOR) 40 mg tablet TAKE 1 TABLET DAILY (REPLACES CRESTOR) 90 tablet 7 Active Additional Information Patient not taking.Reported on 07/11/2024 vortioxetine (TRINTELLIX) 10 mg tabletIndicatio ns:major depressive disorder Take 1 tablet (10 mg total) by mouth daily for 28 days. 28 tablet 8 Active Additional Information Patient not taking.Reported on 07/11/2024 IBU 800 mg tablet TAKE 1 TABLET 3 TIMES A DAYAS NEEDED FOR PAIN 90 tablet 5 8 Active Additional Information Patient not taking.Reported on 07/11/2024 amlodipine-olme sartan (SONIDO) 10-40 mg per tabletIndicatio ns:hypertension Take 1 tablet by mouth daily. 90 tablet 1 8 Active atorvastatin (LIPITOR) 40 mg tablet Take 1 tablet (40 mg total) by mouth daily. 90 tablet 8 Active Additional Information Patient not taking.Reported on 07/11/2024 triamterene-hyd roCHLOROthiazid e (triamterene-hy droCHLOROthiazi de) 37.5-25 mg per tablet/capsule Take 1 tablet/capsule by mouth daily. 90 tablet 2 8 Active allopurinoL (ZYLOPRIM) 100 mg tablet Take 1 tablet (100 mg total) by mouth daily Active levothyroxine (SYNTHROID) 50 mcg tablet Take 1 tablet (50 mcg total) by mouth senior drafter before breakfast Active cyanocobalamin- cobamamide 5,000-100 mcg [...] (10/31/2020): Added automatically from request for surgery [id number] Depression 08/31/2017 Assessment & Plan (08/31/2017 6:40 [...] 04/01/2017 Assessment & Plan (04/01/2017 7:02 PM FISH AND WILDLIFE SCIENTIFIC AID): Patient spirits grief loss of her child her some was a patient of mine. Her son was in his early 40s she has a daughter who is approximately 2 years old was doing well in good health. He had a chronic illness of approximately 4- 5 years. 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 He was admitted to [facility] where he had been managed for his [...] 07/2016 Assessment & Plan (12/29/2016 6:19 PM FISH AND WILDLIFE SCIENTIFIC AID): Patient has been coughing up green sputum, [...] appointment. Assessment & Plan (04/01/2017 7:00 PM FISH AND WILDLIFE SCIENTIFIC AID): Hypertension is unchanged. Continue current treatment regimen. [...] episodes. Assessment & Plan (04/01/2017 7:01 PM FISH AND WILDLIFE SCIENTIFIC AID): Patient is asymptomatic at this time regarding [...] on file Legal Sex Female 1:25 PM FISH AND WILDLIFE SCIENTIFIC AID Gender Identity Not on file Sexual Orientation Not on file Last Filed Vital Signs Vital Sign Reading Time Taken Comments Blood Pressure 139/90 07/11/2024 10:45 AM CDT Pulse 81 07/11/2024 10:45 AM CDT Temperature 36.6 C (97.9 F) 07/11/2024 10:45 AM CDT Respiratory Rate 20 07/11/2024 10:45 AM CDT Oxygen Saturation 99% 07/11/2024 10:45 AM CDT Inhaled Oxygen Concentration - - Weight 98.4 kg (217 lb) 07/11/2024 10:45 AM CDT Height 160 cm (5' 3) 07/11/2024 10:45 AM CDT Body Mass Index 38.44 07/11/2024 10:45 AM CDT Plan of Treatment Not on file Procedures Procedure Name Priority Date/Time Associated Diagnosis Comments XR KNEE RIGHT 3 VIEWS Schedule TOREY, Read TOREY (Appt Today, Awaiting Results) 07/11/2024 10:56 AM CDT Acute pain of right knee COLONOSCOPY 07/30/2022 11:50 AM CDT from Last 3 Months or Most Recently Relevant to Health Maintenance Results * XR Knee Right 3 Vw (07/11/2024 10:56 AM CDT) Anatomical Region Laterality Modality Lower Extremities, Knee Right Digital Radiography 07/11/2024 2:01 PM CDT Narrative 07/11/2024 2:02 PM CDT EXAM DESCRIPTION: XR KNEE RIGHT 3 VIEWS REASON FOR STUDY: knee pain Pt complains of chronic knee pain worsening recently. No new injury TECHNIQUE: 3 radiographic view(s) of the right knee . COMPARISON: 05/06/2024 FINDINGS: There is no definite evidence of acute displaced fracture or dislocation involving the right knee. There are tricompartmental degenerative changes of the right knee with joint space narrowing, mild spurring, and minimal sclerosis. There is swhm-yi-eaco articulation of the lateral compartment with near pgcw-us-yxwl articulation of the medial compartment. There is a small suprapatellar joint effusion. IMPRESSION: Tricompartmental degenerative changes of the right knee without definite evidence of acute displaced fracture or dislocation. Small suprapatellar joint effusion. THIS IS AN ELECTRONICALLY VERIFIED FINAL REPORT 07/11/2024 2:02 PM - Electronically signed by Tania Romero D.O. PS T: Report ID: [id number] Reading Location: [id number] Procedure Note Tania Romero DO - 07/11/2024 EXAM DESCRIPTION: XR KNEE RIGHT 3 VIEWS REASON FOR STUDY: knee pain Pt complains of chronic knee pain worsening recently. No new injury TECHNIQUE: 3 radiographic view(s) of the right knee . COMPARISON: 05/06/2024 FINDINGS: There is no definite evidence of acute displaced fracture or dislocation involving the right knee. There are tricompartmentaldegenerative changes of the right knee with joint space narrowing, mild spurring, and minimal sclerosis. There is pcxn-ly-pzss articulation of the lateral compartment with near rdrk-em-davd articulation of the medial compartment. There is a small suprapatellar joint effusion. IMPRESSION: Tricompartmental degenerative changes of the right knee without definite evidence of acute displaced fracture or dislocation. Small suprapatellar joint effusion. THIS IS AN ELECTRONICALLY VERIFIED FINAL REPORT 07/11/2024 2:02 PM - Electronically signed by Tania Romero D.O. PS T: Report ID: [id number] Reading Location: [id number] Simona GARCIA IMG XR PROCEDURES Final Result * COLONOSCOPY (07/30/2022 11:50 AM CDT) Anatomical Region Laterality Modality Other Narrative Procedure Note Jamie Clements MD - 07/30/2022 11:50 AM CDT [facility] Patient Name: Jolie Montelongo Procedure Date: 07/30/2022 11:50 AM Date of : 1955 Admit Type: Outpatient Age: 67 Gender: Female Attending MD: Jamie Clements M.D. [facility]: [facility] 1 Note Status: Finalized [...] Last colonoscopy: July 2017 Referring MD: Lexii Mason PA-C Providers: Jamie Clements M.D. Impression: - Diverticulosis [...] under direct vision. The Pediatric Colonoscope PCF-H190L [id number] was introducedthrough the anus and advanced to [...] 11:50 AM Procedure Code(s): --- Professional --- 09927, Colonoscopy, flexible; with removal of tumor(s), polyp(s), or other lesion(s) by snare technique 01957, Colonoscopy, flexible; with directed submucosal injection(s),any substance Diagnosis Code(s): --- Professional --- Z86.010, Personal history of colonic polyps K64.8, Other hemorrhoids D12.3, Benign neoplasm of transverse colon (hepatic flexure orsplenic flexure) K57.30, Diverticulosis of large intestine without perforation orabscess without bleeding CPT copyright 2020 [employer]. All rights reserved. The codes documented in this report are preliminary and upon medical technologist hematology reviewmay be revised to meet current compliance requirements. Recognized by the [employer] for promoting quality in endoscopy Jamie Clements MD ENDOSCOPY PROCEDURES Final Result from Last 3 Months or Most Recently Relevant to Health Maintenance Insurance AETNA MEDICARE AETNA MEDICARE AETNA MEDICARE AETNA MEDICARE Advance Directives For more information, please contact: [phone] * Full Code (Latest Code Status on [...] 9:21 AM 08/04/2017 1:43 PM Care Teams Manager Lean Relationship Specialty Start Date End Date Lexii Mason PA PCP - General Physician Lap Polisher 07/30/22
--- OUTSIDE RECORDS SUMMARY | 2024-09-28 07:30 | XMS_ITS | Clinical Summary ---
Author Organization [facility] [address] Address [address] [place] [address] Phone Care Team Providers Care Director Of Conservation Name Role Phone OctavioLorraine eloneyda GARCIA Primary [...] 1 tablet (50 mcg total) by mouth apartment rental agent before breakfast Active cyanocobalamin- cobamamide 5,000-100 mcg [...] (10/31/2020): Added automatically from request for surgery [id number] Depression 08/31/2017 Assessment & Plan (08/31/2017 6:40 [...] 04/01/2017 Assessment & Plan (04/01/2017 7:02 PM BAR AND FILLER ASSEMBLER): Patient spirits grief loss of her child her some was a patient of mine. Her son was in his early 40s she has a daughter who is approximately 2 years old was doing well in good health. He had a chronic illness of approximately 4- 5 years. 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 He was admitted to [facility] where he had been managed for [...] 07/2016 Assessment & Plan (12/29/2016 6:19 PM BAR AND FILLER ASSEMBLER): Patient has been coughing up green sputum, [...] appointment. Assessment & Plan (04/01/2017 7:00 PM BAR AND FILLER ASSEMBLER): Hypertension is unchanged. Continue current treatment regimen. [...] episodes. Assessment & Plan (04/01/2017 7:01 PM BAR AND FILLER ASSEMBLER): Patient is asymptomatic at this time regarding gout she has had several attacks in the past. Her last uric acid level was acceptable. Assessment & Plan (11/24/2016 5:47 PM CDT): Patient has not had a gout attack for at least 2 years. Encounters Date Type Department Care Team Description 09/13/2024 Telephone [facility] Orthopedics and Sports Medicine [address] [address] Corby Lugo DO Scheduling Appointments 07/11/2024 10:55 AM CDT Ancillary Procedure [facility] Imaging at [address] [id number] Acute pain of right knee 07/11/2024 10:45 AM CDT Office Visit [facility] at [address] [phone] Simona Gray PA Chronic pain of right knee (Primary Dx) from Last 3 Months Surgical History Surgery [...] on file Legal Sex Female 1:25 PM BAR AND FILLER ASSEMBLER Gender Identity Not on file Sexual Orientation [...] 07/11/2024 10:45 AM CDT Plan of Treatment Health Maintenance [...] season) 2023 12/13/2020, 05/11/2020, 04/20/2020 Influenza Vaccine (#1) 2024 Colon Cancer Screening-Colonoscopy 07/30/2032 07/30/2022, 08/04/2017, [...] mild spurring, and minimal sclerosis. There is ibmb-no-vonn articulation of the lateral compartment with near yfeh-by-yyel articulation of the medial compartment. There is a small suprapatellar joint effusion. IMPRESSION: Tricompartmental degenerative changes of the right knee without definite evidence of acute displaced fracture or dislocation. Small suprapatellar joint effusion. THIS IS AN ELECTRONICALLY VERIFIED FINAL REPORT 07/11/2024 2:02 PM - Electronically signed by Tania Romero D.O. PS T: Report ID: [id number] Reading Location: [id number] Procedure Note Tania Romero DO - 07/11/2024 [...] mild spurring, and minimal sclerosis. There is ohbp-dx-onxe articulation of the lateral compartment with near wgml-hz-loya articulation of the medial compartment. There is a small suprapatellar joint effusion. IMPRESSION: Tricompartmental degenerative changes of the right knee without definite evidence of acute displaced fracture or dislocation. Small suprapatellar joint effusion. THIS IS AN ELECTRONICALLY VERIFIED FINAL REPORT 07/11/2024 2:02 PM - Electronically signed by Tania Romero D.O. PS T: Report ID: [id number] Reading Location: [id number] Simona GARCIA IMG XR PROCEDURES Final Result * COLONOSCOPY (07/30/2022 11:50 AM CDT) Anatomical Region Laterality Modality Other Narrative Procedure Note Jamie Clements MD - 07/30/2022 11:50 AM CDT [facility] Patient Name: Jolie Montelongo Procedure Date: 07/30/2022 11:50 AM Date of : 1955 Admit Type: Outpatient Age: 67 Gender: Female Attending MD: Jamie Clements M.D. Room: [facility] ENDOSCOPY ROOM 1 Note Status: Finalized [...] under direct vision. The Pediatric Colonoscope PCF-H190L [id number] was introducedthrough the anus and advanced to [...] 11:50 AM Procedure Code(s): --- Professional --- 76370, Colonoscopy, flexible; with removal of tumor(s), polyp(s), or other lesion(s) by snare technique 99260, Colonoscopy, flexible; with directed submucosal injection(s),any substance Diagnosis Code(s): --- Professional --- Z86.010, Personal history of colonic polyps K64.8, Other hemorrhoids D12.3, Benign neoplasm of transverse colon (hepatic flexure orsplenic flexure) K57.30, Diverticulosis of large intestine without perforation orabscess without bleeding CPT copyright 2020 [employer]. All rights reserved. The codes documented in this report are preliminary and upon sheet music salesperson reviewmay be revised to meet current compliance requirements. Recognized by the [place] [employer] for promoting quality in endoscopy Jamie Clements MD ENDOSCOPY PROCEDURES Final Result from Last 3 Months or Most Recently Relevant to Health Maintenance Insurance AETNA MEDICARE AETNA MEDICARE AETNA MEDICARE AETNA MEDICARE Advance Directives For more information, please contact: [phone] * Full Code (Latest Code Status on [...] 9:21 AM 08/04/2017 1:43 PM Care Teams Director Of Conservation Relationship Specialty Start Date End Date Lexii Mason PA PCP - General Physician Test Administrator 07/30/22
[2024-09-28 07:48] LABS: Hematocrit 37.9 % (37.0-47.0); Hemoglobin 11.7 g/dL (12.0-15.0); Mean Corpuscular HGB Conc 30.9 g/dl (32-36); Mean Corpuscular Hemoglobin 28.1 pg (26-34); Mean Corpuscular Volume 91.1 fl (80-100); Platelet Count Result 282 k/mm3 (150-375); Red Blood Count 4.16 M/mm3 (4.2-5.4); White Blood Count 7.2 K/mm3 (4.5-10.0)
[2024-09-28 08:20] LABS: Albumin Level 4.3 g/dL (3.5-5.1); Anion Gap 10 mmol/L (4-12); Blood Urea Nitrogen 42 mg/dL (7-17); Calcium 10.0 mg/dL (8.4-10.2); Carbon Dioxide 28 mmol/L (22-30); Chloride 104 mmol/L (98-107); Estimated Glomerular Filt Rate 31; Glucose 97 mg/dL (65-110); Potassium 4.5 mmol/L (3.4-5.0); Sodium 142 mmol/L (137-145)
[2024-09-28 10:19] LABS: Total Protein Urine Random 11 mg/dL; Ur Ttl Prot Creatinine Ratio 0.07 mg/mg (0-0.20)
[2024-09-28 10:23] LABS: Parathyroid Intact 80.2 pg/mL (14.5-75.2)
== END 2024-09-28 07:28 | disposition home or self-care (01) ==
LOC: ANHLAB 07:29
PROVIDERS: PCP Physician Assistant; Visit Provider Internal Medicine Nephrology
DX: I12.9 Hypertensive chronic kidney disease with stage 1 through stage 4 chronic kidney disease, or unspecified chronic kidney disease (principal); N18.32 Chronic kidney disease, stage 3b
CPT/HCPCS: 36415; 80069; 82570; 83970; 84156; 85027

== ENCOUNTER 2024-10-14 08:21 | Outpatient (CLI) | payer MEDICARE, SELFPAY ==
--- OUTSIDE RECORDS SUMMARY | 2024-10-14 08:29 | XMS_ITS | Clinical Summary ---
Author Organization [facility] 1 [address] [place] Address [address] [place] [address] Phone Care Team Providers Care Juice Mixer Name Role Phone OctavioLorraine leoneyda GARCIA Primary Care Pr ovider Allergies Active [...] Active Additional Information Patient not taking.Reported on 09/30/2024 atorvastatin (LIPITOR) 40 mg tablet TAKE 1 TABLET DAILY (REPLACES CRESTOR) 90 tablet 7 Active Additional Information Patient not taking.Reported on 09/30/2024 vortioxetine (TRINTELLIX) 10 mg tabletIndicatio ns:major depressive disorder Take 1 tablet (10 mg total) by mouth daily for 28 days. 28 tablet 8 Active Additional Information Patient not taking.Reported on 09/30/2024 IBU 800 mg tablet TAKE 1 TABLET 3 TIMES A DAYAS NEEDED FOR PAIN 90 tablet 5 8 Active Additional Information Patient not taking.Reported on 09/30/2024 amlodipine-olme sartan (SONIDO) 10-40 mg per tabletIndicatio ns:hypertension Take 1 tablet by mouth daily. 90 tablet 1 8 Active atorvastatin (LIPITOR) 40 mg tablet Take 1 tablet (40 mg total) by mouth daily. 90 tablet 8 Active Additional Information Patient not taking.Reported on 09/30/2024 triamterene-hyd roCHLOROthiazid e (triamterene-hy droCHLOROthiazi de) 37.5-25 mg per tablet/capsule Take 1 tablet/capsule by mouth daily. 90 tablet 2 8 Active allopurinoL (ZYLOPRIM) 100 mg tablet Take 1 tablet (100 mg total) by mouth daily Active levothyroxine (SYNTHROID) 50 mcg tablet Take 1 tablet (50 mcg total) by mouth supervisor marble before breakfast Active cyanocobalamin- cobamamide 5,000-100 mcg [...] mg total) by mouth daily 9 Active Hospital, Clinic, or Other Facility Administered Medication Ordered Dose Route Frequency Start Date End Date Status lidocaine (XYLOCAINE) 20 mg/mL (2 %) injection 5 mLIndications:Admini stration of Local Anesthesia 5 mL OTHER One-Time Injection 09/30/2024 5 Ended methylPREDNISolone acetate (DEPO-medrol) injection 80 mgIndications:Primar y osteoarthritis of right knee 80 mg intra-artic One-Time Injection 09/30/2024 5 Ended Active Problems Problem Noted Date Diagnosed Date Anemia 06/16/2022 Abnormal findings on diagnos tic imaging of other specified body structures 10/31/2020 Overview (10/31/2020): Added automatically from request for surgery [id number] Depression 08/31/2017 Assessment & Plan (08/31/2017 6:40 [...] on t Osteoarthritis 08/31/2017 Assessment & Plan (09/30/2024 10:48 AM CDT): Orders: Ambulatory referral to Orthopedic Surgery; Future Assessment & Plan (08/31/2017 6:49 PM CDT): Patient continues have osteoarthritis low back pain multiple joints stable at this time. Patient's handicap parking permit is renewed. Grief at loss of child 04/01/2017 Assessment & Plan (04/01/2017 7:02 PM REPORTING SPECIALIST): Patient spirits grief loss of her child her some was a patient of mine. Her son was in his early 40s she has a daughter who is approximately 2 years old was doing well in good health. He had a chronic illness of approximately 4- 5 years. 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 He was admitted to [facility] where he had been managed [...] 07/2016 Assessment & Plan (12/29/2016 6:19 PM REPORTING SPECIALIST): Patient has been coughing up green sputum, [...] appointment. Assessment & Plan (04/01/2017 7:00 PM REPORTING SPECIALIST): Hypertension is unchanged. Continue current treatment regimen. [...] episodes. Assessment & Plan (04/01/2017 7:01 PM REPORTING SPECIALIST): Patient is asymptomatic at this time regarding gout she has had several attacks in the past. Her last uric acid level was acceptable. Assessment & Plan (11/24/2016 5:47 PM CDT): Patient has not had a gout attack for at least 2 years. Encounters Date Type Department Care Team Description 09/30/2024 10:30 AM CDT Office Visit [facility] Primary Care at [address] [place] [phone] Corby Lugo DO Primary osteoarthritis of right knee (Primary Dx) 09/13/2024 Telephone [facility] [address] [place] [address] [address] [phone] Corby Lugo DO Scheduling Appointments from Last 3 Months Surgical History Surgery [...] Date Smoking Tobacco: Never Smokeless Tobacco: Never Tobacco Cessation:Counseling Given: Not Answered Alcohol Use Standard Drinks/Week Comments No 0 [...] on file Legal Sex Female 1:25 PM REPORTING SPECIALIST Gender Identity Not on file Sexual Orientation Not on file Obstetrics History Last Filed Vital Signs Vital Sign Reading Time Taken Comments Blood Pressure 133/84 09/30/2024 10:23 AM CDT Pulse 111 09/30/2024 10:23 AM CDT Temperature 36.6 C (97.9 F) 07/11/2024 10:45 AM CDT Respiratory Rate 20 07/11/2024 10:4 5 AM CDT Oxygen Saturation 99% 07/11/2024 10: 45 AM CDT Inhaled Oxygen Concentration - - Weight 103.3 kg (227 lb 12.8 oz) 2024 10:23 AM CDT Height 160 cm (5' 3) 09/30/2024 10:23 AM CDT Body Mass Index 40.35 09/30/2024 10:23 AM CDT Plan of Treatment Health Maintenance Due Date Last Done Comments Breast Cancer Screening-Mammogram 1955 Hepatitis C Screening 1955 Osteoporosis Screening-Bone Density Scan 1955 DTaP/Tdap/Td Vaccine (1 - Tdap) 1965 Hepatitis B Screening 1972 Pneumococcal vaccine 65+ (1 of 2 - PCV) 1973 Depression Screening 08/31/2018 08/31/2017 Well Visit 65+ 07/20/2019 Fall Risk Assessment 01/15/2022 01/15/2021, 09/01/19 18 Covid-19 Vaccine (2023-2 5 season) 2023 12/13/2020, 05/11/2020, 04/20/2020 Influenza Vaccine (#1) 2024 Colon Cancer Screening-Colonoscopy 07/30/2032 07/30/2022, 08/04/2017, 06/28/2014, Additional history exists Zoster Vaccine Completed 05/17/2021, 01/30/2021 Colon Cancer Screening-CT Colonography Discontinued 07/30/2022, 08/04/2017, 06/28/2014, Additional history exists Colon Cancer Screening-DNA Stool Discontinued 07/30/2022, 08/04/2017, 06/28/2014, Additional history exists Colon Cancer Screening-FIT Discontinued 07/30, 08/04/2017, 06/28/2014, Additional history exists Colon Cancer Screening-Sigmoidoscopy Discontinued 07/30/2022, 08/04/2017, 06/28/2014, Additional history exists Procedures Procedure Name Priority Date/Time Associated Diagnosis Comments FL ARTHROCENTESIS ASPIR&/INJ MAJOR JT/BURSA W/O US Routine 09/30/2024 10:30 AM CDT Primary osteoarthritis of right knee COLONOSCOPY 07/30/2022 11:50 AM CDT from Last 3 Months or Most Recently Relevant to Health Maintenance Results * FL ARTHROCENTESIS ASPIR&/INJ MAJOR JT/BURSA W/O US (09/30/2024 10:30 AM CDT) Narrative Corby Lugo DO - 09/30/2024 10:30 AM CDT Corby Lugo DO 09/30/2024 10:49 AM Large Joint Arthrocentesis: R knee Performed by: Corby Lugo DO Authorized by: Corby Lugo DO Large Joint Injection/Aspiration: Consent Given by: Patient Site marked: the procedure site was marked Timeout: prior to procedure the correct patient, procedure, and site was verified Verbal consent obtained: Yes Written consent obtained: No Supporting Documentation: Indications: Pain Procedure Details: Location: Knee Site: R knee Prep: patient was prepped and draped in usual sterile fashion Prep: patient was prepped using a clean technique Needle Size: 22 G Approach: Anterolateral Ultrasound guided: No Fluroscopic guidance: No Medications: 5 mL lidocaine 20 mg/mL (2 %); 80 mg methylPREDNISolone acetate 80 mg/mL us Corby Lugo DO IN CL[facility]IDE [facility] Final Result * COLONOSCOPY (07/30/2022 11:50 AM CDT) Anatomical Region Laterality Modality Other Narrative Procedure Note Jamie Clements MD - 07/30/2022 11:50 AM CDT [facility] Patient Name: Jolie Montelongo Procedure Date: 07/30/2022 11:50 AM Date of : 1955 Admit Type: Outpatient Age: 67 Gender: Female Attending MD: Jamie Clements M.D. Room: [facility] ENDOSCOPY ROOM 1 Note Status: Finalized Patient [...] under direct vision. The Pediatric Colonoscope PCF-H190L [id number] was introducedthrough the anus and advanced to [...] 11:50 AM Procedure Code(s): --- Professional --- 39604, Colonoscopy, flexible; with removal of tumor(s), polyp(s), or other lesion(s) by snare technique 99127, Colonoscopy, flexible; with directed submucosal injection(s),any substance Diagnosis Code(s): --- Professional --- Z86.010, Personal history of colonic polyps K64.8, Other hemorrhoids D12.3, Benign neoplasm of transverse colon (hepatic flexure orsplenic flexure) K57.30, Diverticulosis of large intestine without perforation orabscess without bleeding CPT copyright 2020 [employer]. All rights reserved. The codes documented in this report are preliminary and upon clasp machine operator reviewmay be revised to meet current compliance requirements. Recognized by the [employer] for promoting quality in endoscopy Jamie Clements MD ENDOSCOPY PROCEDURES Final Result from Last 3 Months or Most Recently Relevant to Health Maintenance Insurance AET[employer] MEDICARE [facility] MEDICARE [facility] MEDICARE [facility] MEDICARE Advance Directives For more information, please contact: [phone] * Full Code (Latest Code Status on [...] 9:21 AM 08/04/2017 1:43 PM Care Teams Juice Mixer Relationship Specialty Start Date End Date Lexii Mason PA PCP - General Physician Manager Product Design 07/30/22
[2024-10-14 09:12] LABS: Hematocrit 38.3 % (37.0-47.0); Hemoglobin 12.4 g/dL (12.0-15.0); Immature Granulocyte Percent A 0.6 % (0-0.5); Lymphocytes Absolute Auto 1.44 K/mm3 (0.9-3.2); Mean Corpuscular HGB Conc 32.4 g/dl (32-36); Mean Corpuscular Hemoglobin 29.0 pg (26-34); Mean Corpuscular Volume 89.7 fl (80-100); Nucleated Red Blood Cells Absolute Auto 0.000 K/mm3 (0.0-0.012); Nucleated Red Blood Cells Perc 0.0 % (0.0-0.2); Platelet Count Result 323 k/mm3 (150-375); Red Blood Count 4.27 M/mm3 (4.2-5.4); White Blood Count 10.6 K/mm3 (4.5-10.0)
[2024-10-14 09:26] LABS: Hemoglobin A1C 5.7 % (<5.7)
[2024-10-14 09:32] LABS: Alanine Aminotransferase 13 U/L (6-35); Albumin Level 4.0 g/dL (3.5-5.1); Alkaline Phosphatase 124 U/L (38-126); Anion Gap 7 mmol/L (4-12); Aspartate Amino Transferase 21 U/L (14-36); Bilirubin,Total 0.3 mg/dL (0.2-1.3); Blood Urea Nitrogen 38 mg/dL (7-17); Calcium 10.0 mg/dL (8.4-10.2); Carbon Dioxide 26 mmol/L (22-30); Chloride 106 mmol/L (98-107); Estimated Glomerular Filt Rate 34; Glucose 99 mg/dL (65-110); Potassium 4.5 mmol/L (3.4-5.0); Sodium 139 mmol/L (137-145); Total Protein 7.7 g/dL (6.3-8.2); Uric Acid 3.7 mg/dL (2.5-7.5)
[2024-10-14 09:41] LABS: Free T4 Free Thyroxine 1.19 ng/dL (0.78-2.19)
[2024-10-14 10:04] LABS: Thyroid Stimulating Hormone 2.560 uIU/mL (0.465-4.680)
== END 2024-10-14 08:22 | disposition home or self-care (01) ==
LOC: ANHLAB 08:27
PROVIDERS: PCP Physician Assistant; Visit Provider Physician Assistant
DX: R73.03 Prediabetes (principal); M10.9 Gout, unspecified; E03.9 Hypothyroidism, unspecified; Z79.899 Other long term (current) drug therapy
CPT/HCPCS: 36415; 80048; 80076; 83036; 84439; 84443; 84550; 85025

== ENCOUNTER 2024-11-04 09:04 | Outpatient (CLI) | payer MEDICARE, SELFPAY ==
--- OUTSIDE RECORDS SUMMARY | 2024-11-04 09:26 | XMS_ITS | Clinical Summary ---
Author Organization 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 Her son was in his early 40s she has a daughter who is approximately 2 years old was doing well in good health. He had a chronic illness of approximately 4- 5 years. 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 He was admitted to [facility] where he had been managed for [...] 07/2016 Assessment & Plan (12/29/2016 6:19 PM JAVA DEVELOPER WITH SECURITY CLEARANCE): Patient has been coughing up green sputum, [...] appointment. Assessment & Plan (04/01/2017 7:00 PM JAVA DEVELOPER WITH SECURITY CLEARANCE): Hypertension is unchanged. Continue current treatment regimen. [...] episodes. Assessment & Plan (04/01/2017 7:01 PM JAVA DEVELOPER WITH SECURITY CLEARANCE): Patient is asymptomatic at this time regarding gout she has had several attacks in the past. Her last uric acid level was acceptable. Assessment & Plan (11/24/2016 5:47 PM CDT): Patient has not had a gout attack for at least 2 years. Encounters Date Type Department Care Team Description 09/30/2024 10:30 AM CDT Office Visit [facility] at [address] [place] [phone] Corby Lugo DO Primary osteoarthritis of right knee (Primary Dx) 09/13/2024 Telephone [facility] [address] [facility] [address], [place] [address] Corby Lugo DO Scheduling Appointments from Last [...] on file Legal Sex Female 1:25 PM JAVA DEVELOPER WITH SECURITY CLEARANCE Gender Identity Not on file Sexual Orientation [...] 01/15/2021, 09/01/19 18 Covid-19 Vaccine (4 - 2024-2 6 season) 2024 12/13/2020, 05/11/2020, 04/20/2020 Influenza Vaccine (#1) 2024 [...] Procedure Name Priority Date/Time Associated Diagnosis Comments [place] ARTHROCENTESIS ASPIR&/INJ MAJOR JT/BURSA W/O US Routine 09/30/2024 10:30 AM CDT Primary osteoarthritis of right knee COLONOSCOPY 07/30/2022 11:50 AM CDT from Last 3 Months or Most Recently Relevant to Health Maintenance Results * [place] ARTHROCENTESIS ASPIR&/INJ MAJOR JT/BURSA W/O US (09/30/2024 [...] %); 80 mg methylPREDNISolone acetate 80 mg/mL Corby Lugo DO IN [facility] Final Result * COLONOSCOPY (07/30/2022 11:50 AM CDT) Anatomical Region Laterality Modality Other Narrative Procedure Note Jamie Clements MD - 07/30/2022 11:50 AM CDT [facility] Patient Name: Jolie Montelongo Procedure Date: 07/30/2022 11:50 AM Date of : 1955 Admit Type: Outpatient Age: 67 Gender: Female Attending MD: Jamie Clements M.D. Room: [facility] ENDOSCOPY ROOM 1 Note Status: Finalized [...] under direct vision. The Pediatric Colonoscope PCF-H190L [id number] was introducedthrough the anus and advanced to [...] 11:50 AM Procedure Code(s): --- Professional --- 95312, Colonoscopy, flexible; with removal of tumor(s), polyp(s), or other lesion(s) by snare technique 49332, Colonoscopy, flexible; with directed submucosal injection(s),any substance Diagnosis Code(s): --- Professional --- Z86.010, Personal history of colonic polyps K64.8, Other hemorrhoids D12.3, Benign neoplasm of transverse colon (hepatic flexure orsplenic flexure) K57.30, Diverticulosis of large intestine without perforation orabscess without bleeding CPT copyright 2020 [employer]. All rights reserved. The codes documented in this report are preliminary and upon certified procedural coder reviewmay be revised to meet current compliance requirements. Recognized by the [employer] for promoting quality in endoscopy Jamie Clements MD ENDOSCOPY PROCEDURES Final Result from Last 3 Months or Most Recently Relevant to Health Maintenance Insurance [facility] MEDICARE AETNA MEDICARE AETNA MEDICARE AETNA MEDICARE Advance Directives For more information, please contact: [phone] * Full Code (Latest Code Status on [...] 9:21 AM 08/04/2017 1:43 PM Care Teams Logistics Analyst Relationship Specialty Start Date End Date Lexii Mason PA PCP - General Physician Inside Wireman 07/30/22
[2024-11-04 09:51] LABS: Iron 49 ug/dL (37-170)
[2024-11-04 09:59] LABS: Anion Gap 11 mmol/L (4-12); Blood Urea Nitrogen 32 mg/dL (7-17); Calcium 9.4 mg/dL (8.4-10.2); Carbon Dioxide 25 mmol/L (22-30); Chloride 103 mmol/L (98-107); Estimated Glomerular Filt Rate 27; Glucose 93 mg/dL (65-110); Potassium 4.2 mmol/L (3.4-5.0); Sodium 139 mmol/L (137-145)
[2024-11-04 10:00] LABS: Percent Iron Saturation 17 % (20-50)
[2024-11-04 10:32] LABS: Ferritin 68.80 ng/mL (11.1-264)
== END 2024-11-04 09:05 | disposition home or self-care (01) ==
PROVIDERS: PCP Physician Assistant; Visit Provider Internal Medicine Nephrology
DX: D64.9 Anemia, unspecified (principal); N18.32 Chronic kidney disease, stage 3b
CPT/HCPCS: 36415; 80048; 82728; 83540; 83550